=== PATIENT | female | born 1995 | race Caucasian/White ===

== ENCOUNTER → 2016-12-15 | Outpatient (CLI) | payer BC ==
[2016-12-15 16:57] LABS: FREE T4 1.15 NG/DL (0.76-1.46)
== END ==
LOC: M WUC 15:04
PROVIDERS: ATTEND Nurse Practitioner Family
DX: E03.9 Hypothyroidism, unspecified (principal)

== ENCOUNTER → 2017-08-17 | Outpatient (CLI) | payer BC | LOC: M WUC 16:13 | DX: M79.671 Pain in right foot (principal) | CPT/HCPCS: 73630 ==

== ENCOUNTER → 2017-12-09 | Outpatient (CLI) | payer BC ==
[2017-12-09 19:24] LABS: HEMATOCRIT 41.2 % (36.0-47.0); HEMOGLOBIN 13.6 g/dl (12.0-15.5); MEAN CORPUSCULAR HEMOGLOBIN 28.9 pg (27.0-33.0); MEAN CORPUSCULAR VOLUME 87.5 fl (80.0-96.0); RED BLOOD COUNT 4.71 10^6/uL (4.00-5.40); RED CELL DISTRIBUTION WIDTH 12.5 % (11.5-14.5)
[2017-12-09 19:25] LABS: BASO % 0.3 % (0.0-1.0); EOS # 0.1 10^3/uL (0.0-0.50); EOS % 0.6 % (0.0-3.0); IMMATURE GRANULOCYTE % 0.4 % (0-3.0); LYMPH # 3.2 10^3/uL (1.5-6.5); LYMPH % 26.5 % (24.0-44.0); MONO # 0.9 10^3/uL (0.0-0.8); MONO % 7.3 % (0.0-5.0); NEUTROPHILS # 7.8 10^3/uL (1.8-7.7); NEUTROPHILS % 64.9 % (36.0-66.0); PLATELET COUNT, AUTOMATED 278 10^3/uL (150-450)
[2017-12-09 19:55] LABS: IRON (FE) 38 UG/DL (50-170); PERCENT SATURATION 10.7 % (13.2-45.0); TOTAL IRON BINDING CAPACITY 354 UG/DL (250-450)
[2017-12-12 09:05] LABS: ANA (HEP2) Positive (.)
== END ==
LOC: M LAB 18:28
DX: R04.0 Epistaxis (principal)
CPT/HCPCS: 83550

== ENCOUNTER → 2017-12-09 | Outpatient (REF) | payer BC | LOC: M SFHCCLAY 15:05 | DX: R04.0 Epistaxis (principal); R23.8 Other skin changes ==

== ENCOUNTER → 2018-01-07 | Outpatient (REF) | payer BC ==
[2018-01-07 16:53] LABS: BASO % 0.2 % (0.0-1.0); EOS % 0.4 % (0.0-3.0); HEMATOCRIT 39.9 % (36.0-47.0); HEMOGLOBIN 13.5 g/dl (12.0-15.5); IMMATURE GRANULOCYTE % 0.2 % (0-3.0); LYMPH # 2.6 10^3/uL (1.5-6.5); LYMPH % 27.4 % (24.0-44.0); MEAN CORPUSCULAR HEMOGLOBIN 29.2 pg (27.0-33.0); MEAN CORPUSCULAR HGB CONC 33.8 g/dl (32.0-36.5); MEAN CORPUSCULAR VOLUME 86.2 fl (80.0-96.0); MONO # 0.6 10^3/uL (0.0-0.8); MONO % 6.5 % (0.0-5.0); NEUTROPHILS # 6.1 10^3/uL (1.8-7.7); NEUTROPHILS % 65.3 % (36.0-66.0); PLATELET COUNT, AUTOMATED 285 10^3/uL (150-450); RED BLOOD COUNT 4.63 10^6/uL (4.00-5.40); RED CELL DISTRIBUTION WIDTH 12.6 % (11.5-14.5); WHITE BLOOD COUNT 9.4 10^3/uL (4.0-10.0)
[2018-01-07 17:10] LABS: AMORPHOUS SEDIMENT SMALL (NEGATIVE); APPEARANCE, URINE HAZY (CLEAR); BACTERIA, URINE AUTO NEGATIVE (NEGATIVE); BILIRUBIN, URINE AUTO NEGATIVE (NEGATIVE); BLOOD, URINE BLOOD 1+ (NEGATIVE); COLOR, URINE YELLOW (YELLOW); GLUCOSE, URINE (UA) AUTO NEGATIVE (NEGATIVE); KETONE, URINE AUTO TRACE mg/dL (NEGATIVE); LEUKOCYTE ESTERASE, URINE AUTO TRACE (NEGATIVE); NITRITE, URINE AUTO NEGATIVE (NEGATIVE); PROTEIN, URINE AUTO NEGATIVE (NEGATIVE); RBC, URINE AUTO 12 /HPF (0-3); SQUAMOUS EPITHELIAL CELL UR AU 1 /HPF (0-6); WBC, URINE AUTO 5 /HPF (0-3)
[2018-01-07 17:27] LABS: CREATININE,RANDOM URINE 92.4 MG/DL; TOTAL PROTEIN,RANDOM URINE 14.8 MG/DL (0.0-12.0)
[2018-01-07 17:40] LABS: TOTAL 25(OH) VITAMIN D 21.8 NG/ML (30.0-100.0)
[2018-01-07 17:41] LABS: ALBUMIN 4.5 GM/DL (3.2-5.2); ALBUMIN/GLOBULIN RATIO 1.45 (1.00-1.93); ALKALINE PHOSPHATASE 44 U/L (45-117); ALT/SGPT 15 U/L (12-78); ANION GAP 9 MEQ/L (8-16); AST/SGOT 11 U/L (7-37); BILIRUBIN,TOTAL 0.4 MG/DL (0.2-1.0); BLOOD UREA NITROGEN 15 MG/DL (7-18); C REACTIVE PROTEIN QUANTITATIV 0.42 MG/DL (0.00-0.30); CALCIUM LEVEL 8.5 MG/DL (8.5-10.1); CARBON DIOXIDE LEVEL 25 MEQ/L (21-32); CHLORIDE LEVEL 107 MEQ/L (98-107); COMPLEMENT C3 128 MG/DL (90-180); COMPLEMENT C4 27.2 MG/DL (10-40); CREATININE FOR GFR 0.63 MG/DL (0.55-1.30); GLOMERULAR FILTRATION RATE > 60.0 (>60); GLUCOSE, FASTING 72 MG/DL (70-100); POTASSIUM SERUM 4.3 MEQ/L (3.5-5.1); RHEUMATOID FACTOR QUANT < 10.0 IU/ML (<15.0); SODIUM LEVEL 141 MEQ/L (136-145); THYROID STIMULATING HORMONE 0.675 uIU/ML (0.358-3.740); TOTAL PROTEIN 7.6 GM/DL (6.4-8.2)
[2018-01-07 17:45] LABS: ERYTHROCYTE SEDIMENTATION RATE 5 mm/hr (0-20)
[2018-01-11 00:07] LABS: ANTI DOUBLE STRAND-DNA AB <1 IU/mL (0-9); CYCLIC CITRULLINATED PEPTIDE 10 units (0-19); G6PD2 4.64 x10E6/uL (3.77-5.28); G6PD3 229 (146-376); RNP ANTIBODY < 0.2 AI (0.0-0.9); SMITHS ANTIBODY < 0.2 AI (0.0-0.9); SSA SJOGRENS A <0.2 AI (0.0-0.9); SSB SJOGRENS B <0.2 AI (0.0-0.9)
== END ==
LOC: M SFHCLERA 13:52
DX: R76.8 Other specified abnormal immunological findings in serum (principal)
CPT/HCPCS: 84443

== ENCOUNTER → 2018-04-18 | Outpatient (CLI) | payer BC | LOC: M RAD 15:31 | DX: M79.641 Pain in right hand (principal); M79.642 Pain in left hand | CPT/HCPCS: 73130 ==

== ENCOUNTER → 2018-09-05 | Outpatient (REF) | payer BC ==
[~2018-09-05] MED LIST: IBUP-1022 PO
== END ==
LOC: M SFHCLERA 18:03
PROVIDERS: ATTEND Nurse Practitioner Family
DX: R68.89 Other general symptoms and signs (principal)

== ENCOUNTER → 2018-10-18 | Outpatient (CLI) | payer BC ==
[2018-10-18 16:26] LABS: BASO % 0.3 % (0.0-1.0); EOS # 0.1 10^3/uL (0.0-0.50); EOS % 0.9 % (0.0-3.0); HEMATOCRIT 43.9 % (36.0-47.0); LYMPH # 2.1 10^3/uL (1.5-6.5); MEAN CORPUSCULAR HEMOGLOBIN 29.2 pg (27.0-33.0); MEAN CORPUSCULAR HGB CONC 31.9 g/dl (32.0-36.5); MEAN CORPUSCULAR VOLUME 91.5 fl (80.0-96.0); MONO # 0.6 10^3/uL (0.0-0.8); MONO % 9.1 % (0.0-5.0); NEUTROPHILS % 58.6 % (36.0-66.0); PLATELET COUNT, AUTOMATED 261 10^3/uL (150-450); WHITE BLOOD COUNT 6.8 10^3/uL (4.0-10.0)
[2018-10-18 16:33] LABS: ALBUMIN 4.1 GM/DL (3.2-5.2); ALT/SGPT 14 U/L (12-78); BILIRUBIN,TOTAL 0.3 MG/DL (0.2-1.0); BLOOD UREA NITROGEN 7 MG/DL (7-18); CALCIUM LEVEL 9.2 MG/DL (8.5-10.1); CARBON DIOXIDE LEVEL 28 MEQ/L (21-32); CHLORIDE LEVEL 106 MEQ/L (98-107); CREATININE FOR GFR 0.69 MG/DL (0.55-1.30); GLOMERULAR FILTRATION RATE > 60.0 (>60); GLUCOSE, FASTING 81 MG/DL (70-100); POTASSIUM SERUM 4.4 MEQ/L (3.5-5.1); SODIUM LEVEL 142 MEQ/L (136-145); TOTAL PROTEIN 7.3 GM/DL (6.4-8.2)
[2018-10-18 18:27] LABS: ERYTHROCYTE SEDIMENTATION RATE 9 mm/hr (0-20)
[2018-10-19 09:54] LABS: HEPATITIS B SURFACE ANTIGEN NEGATIVE (NEGATIVE)
[2018-10-19 10:20] LABS: HEPATITIS C VIRUS ABY INDEX 0.1 INDEX (<0.8)
[2018-10-19 10:21] LABS: HEPATITIS B CORE ANTIBODY IGM NEGATIVE (NEGATIVE)
[2018-10-19 10:30] LABS: HEPATITIS A ANTIBODY IGM NEGATIVE (NEGATIVE)
== END ==
LOC: M LAB 13:58
PROVIDERS: ATTEND Registered Nurse General Practice
DX: L40.50 Arthropathic psoriasis, unspecified (principal); M25.50 Pain in unspecified joint

== ENCOUNTER → 2019-01-25 | Outpatient (CLI) | payer BC ==
[2019-01-25 16:35] LABS: BASO % 0.4 % (0.0-1.0); EOS # 0.1 10^3/uL (0.0-0.50); EOS % 1.6 % (0.0-3.0); HEMATOCRIT 40.2 % (36.0-47.0); HEMOGLOBIN 12.8 g/dl (12.0-15.5); LYMPH # 2.3 10^3/uL (1.5-6.5); LYMPH % 29.4 % (24.0-44.0); MEAN CORPUSCULAR HEMOGLOBIN 29.8 pg (27.0-33.0); MEAN CORPUSCULAR HGB CONC 31.8 g/dl (32.0-36.5); MEAN CORPUSCULAR VOLUME 93.7 fl (80.0-96.0); MONO # 0.7 10^3/uL (0.0-0.8); MONO % 8.4 % (0.0-5.0); NEUTROPHILS # 4.6 10^3/uL (1.8-7.7); NEUTROPHILS % 59.8 % (36.0-66.0); PLATELET COUNT, AUTOMATED 269 10^3/uL (150-450); RED BLOOD COUNT 4.29 10^6/uL (4.00-5.40); WHITE BLOOD COUNT 7.7 10^3/uL (4.0-10.0)
[2019-01-25 17:01] LABS: ALBUMIN 3.8 GM/DL (3.2-5.2); ALT/SGPT 27 U/L (12-78); BILIRUBIN,TOTAL 0.3 MG/DL (0.2-1.0); BLOOD UREA NITROGEN 6 MG/DL (7-18); CALCIUM LEVEL 8.6 MG/DL (8.5-10.1); CARBON DIOXIDE LEVEL 28 MEQ/L (21-32); CHLORIDE LEVEL 105 MEQ/L (98-107); CREATININE FOR GFR 0.71 MG/DL (0.55-1.30); GLOMERULAR FILTRATION RATE > 60.0 (>60); GLUCOSE, FASTING 87 MG/DL (70-100); POTASSIUM SERUM 4.1 MEQ/L (3.5-5.1); RHEUMATOID FACTOR QUANT < 10.0 IU/ML (<15.0); SODIUM LEVEL 139 MEQ/L (136-145); TOTAL PROTEIN 6.9 GM/DL (6.4-8.2)
[2019-01-25 18:08] LABS: ERYTHROCYTE SEDIMENTATION RATE 8 mm/hr (0-20)
== END ==
LOC: M WUC 14:51
PROVIDERS: ATTEND Registered Nurse General Practice
DX: L40.9 Psoriasis, unspecified (principal)

== ENCOUNTER → 2019-05-02 | Outpatient (REF) | payer BC | LOC: M SFHCCLAY 12:00 | PROVIDERS: ATTEND Nurse Practitioner Family | DX: J02.9 Acute pharyngitis, unspecified (principal) ==

== ENCOUNTER → 2019-08-02 | Outpatient (CLI) | payer BC ==
[2019-08-02 20:27] LABS: BASO % 0.3 % (0.0-1.0); EOS % 0.4 % (0.0-3.0); HEMATOCRIT 42.3 % (36.0-47.0); HEMOGLOBIN 13.7 g/dl (12.0-15.5); LYMPH # 3.5 10^3/uL (1.5-5.0); LYMPH % 34.7 % (24.0-44.0); MEAN CORPUSCULAR HEMOGLOBIN 29.1 pg (27.0-33.0); MEAN CORPUSCULAR HGB CONC 32.4 g/dl (32.0-36.5); MEAN CORPUSCULAR VOLUME 89.8 fl (80.0-96.0); MONO # 0.8 10^3/uL (0.0-0.8); MONO % 7.8 % (0.0-5.0); NEUTROPHILS # 5.7 10^3/uL (1.5-8.5); NEUTROPHILS % 56.5 % (36.0-66.0); PLATELET COUNT, AUTOMATED 310 10^3/uL (150-450); RED BLOOD COUNT 4.71 10^6/uL (4.00-5.40); WHITE BLOOD COUNT 10.1 10^3/uL (4.0-10.0)
[2019-08-02 20:37] LABS: ALBUMIN 4.3 GM/DL (3.2-5.2); ALT/SGPT 23 U/L (12-78); BILIRUBIN,TOTAL 0.3 MG/DL (0.2-1.0); BLOOD UREA NITROGEN 6 MG/DL (7-18); CARBON DIOXIDE LEVEL 26 MEQ/L (21-32); CHLORIDE LEVEL 106 MEQ/L (98-107); CREATININE FOR GFR 0.63 MG/DL (0.55-1.30); GLOMERULAR FILTRATION RATE > 60.0 (>60); GLUCOSE, FASTING 78 MG/DL (70-100); POTASSIUM SERUM 4.2 MEQ/L (3.5-5.1); SODIUM LEVEL 141 MEQ/L (136-145); TOTAL PROTEIN 7.7 GM/DL (6.4-8.2)
== END ==
LOC: M WUC 17:14
PROVIDERS: ATTEND Registered Nurse General Practice
DX: L40.9 Psoriasis, unspecified (principal); Z71.9 Counseling, unspecified

== ENCOUNTER → 2019-08-15 | Outpatient (REF) | payer BC ==
[2019-08-17 14:07] LABS: Lyme Disease IgG/IgM Antibodie <0.91 ISR (0.00-0.90); Lyme Disease IgM Ab Quantitati <0.80 index (0.00-0.79)
== END ==
LOC: M SFHCCLAY 10:01
PROVIDERS: ATTEND Nurse Practitioner Family
DX: M25.50 Pain in unspecified joint (principal)

== ENCOUNTER → 2019-09-19 | Outpatient (REF) | payer BC | LOC: M SFHCCLAY 11:38 | PROVIDERS: ATTEND Nurse Practitioner Family | DX: Z01.419 Encounter for gynecological examination (general) (routine) without abnormal findings (principal) | CPT/HCPCS: 87624; G0123 ==

== ENCOUNTER → 2020-04-03 | Outpatient (CLI) | payer BC ==
[2020-04-03 17:11] LABS: BASO % 0.4 % (0.0-1.0); EOS # 0.1 10^3/uL (0.0-0.5); EOS % 0.7 % (0.0-3.0); HEMATOCRIT 43.9 % (36.0-47.0); HEMOGLOBIN 13.8 g/dl (12.0-15.5); LYMPH # 2.7 10^3/uL (1.5-5.0); LYMPH % 36.5 % (24.0-44.0); MEAN CORPUSCULAR HEMOGLOBIN 28.6 pg (27.0-33.0); MEAN CORPUSCULAR HGB CONC 31.4 g/dl (32.0-36.5); MEAN CORPUSCULAR VOLUME 90.9 fl (80.0-96.0); MONO # 0.6 10^3/uL (0.0-0.8); MONO % 7.7 % (0.0-5.0); NEUTROPHILS % 54.4 % (36.0-66.0); PLATELET COUNT, AUTOMATED 301 10^3/uL (150-450); RED BLOOD COUNT 4.83 10^6/uL (4.00-5.40); WHITE BLOOD COUNT 7.4 10^3/uL (4.0-10.0)
[2020-04-03 17:37] LABS: ERYTHROCYTE SEDIMENTATION RATE 8 mm/hr (0-20)
[2020-04-03 20:08] LABS: ALBUMIN 4.1 GM/DL (3.2-5.2); ALT/SGPT 15 U/L (12-78); BILIRUBIN,TOTAL 0.5 MG/DL (0.2-1.0); BLOOD UREA NITROGEN 7 MG/DL (7-18); CALCIUM LEVEL 9.2 MG/DL (8.5-10.1); CARBON DIOXIDE LEVEL 25 MEQ/L (21-32); CHLORIDE LEVEL 108 MEQ/L (98-107); CREATININE FOR GFR 0.72 MG/DL (0.55-1.30); FREE T4 1.19 NG/DL (0.76-1.46); GLOMERULAR FILTRATION RATE > 60.0 (>60); GLUCOSE, FASTING 77 MG/DL (70-100); POTASSIUM SERUM 4.5 MEQ/L (3.5-5.1); RHEUMATOID FACTOR QUANT < 10.0 IU/ML (<15.0); SODIUM LEVEL 139 MEQ/L (136-145); THYROID STIMULATING HORMONE 0.386 uIU/ML (0.358-3.740); TOTAL PROTEIN 7.5 GM/DL (6.4-8.2)
== END ==
LOC: M WUC 10:36
PROVIDERS: ATTEND Specialist
DX: L40.0 Psoriasis vulgaris (principal); L40.50 Arthropathic psoriasis, unspecified; Z79.899 Other long term (current) drug therapy

== ENCOUNTER → 2020-05-27 | Outpatient (REF) | payer BC ==
[2020-05-27 17:48] LABS: APPEARANCE, URINE HAZY (CLEAR); BACTERIA, URINE AUTO NEGATIVE (NEGATIVE); BILIRUBIN, URINE AUTO NEGATIVE (NEGATIVE); BLOOD, URINE BLOOD 2+ (NEGATIVE); COLOR, URINE YELLOW (YELLOW); GLUCOSE, URINE (UA) AUTO NEGATIVE (NEGATIVE); KETONE, URINE AUTO NEGATIVE (NEGATIVE); LEUKOCYTE ESTERASE, URINE AUTO TRACE (NEGATIVE); MUCUS, URINE SMALL (NEGATIVE); NITRITE, URINE AUTO NEGATIVE (NEGATIVE); PROTEIN, URINE AUTO NEGATIVE (NEGATIVE); RBC, URINE AUTO 10 /HPF (0-3); SPECIFIC GRAVITY URINE AUTO 1.029 (1.002-1.035); SQUAMOUS EPITHELIAL CELL UR AU 3 /HPF (0-6); UROBILINOGEN, URINE AUTO 0.2 mg/dL (0.0-2.0); WBC, URINE AUTO 6 /HPF (0-3)
== END ==
LOC: M SFHCRHEU 15:11
PROVIDERS: ATTEND Internal Medicine
DX: R76.8 Other specified abnormal immunological findings in serum (principal); M25.40 Effusion, unspecified joint; M79.10 Myalgia, unspecified site; M54.9 Dorsalgia, unspecified

== ENCOUNTER → 2020-05-28 | Outpatient (CLI) | payer BC ==
--- NOTE | 2020-05-28 11:02 | REP ---
INDICATION: JOINT EFFUSION OR MULTIPLE SITES, TROCHANTERIC BURSITIS COMPARISON: None. TECHNIQUE: AP, lateral, bilateral oblique views right and left hand. FINDINGS: The osseous structures and joint spaces are intact and normal. There is no evidence for osteoarthritic or inflammatory arthritic changes and no obvious congenital abnormalities. No evidence for acute or healed injury. Surrounding soft tissues are normal. IMPRESSION: Symmetric normal bilateral hand radiograph series. <Electronically signed by Zack Zamora > 05/28/20 [id number]
--- NOTE | 2020-05-28 11:03 | REP ---
INDICATION: JOINT EFFUSION OR MULTIPLE SITES, TROCHANTERIC BURSITIS COMPARISON: None. TECHNIQUE: AP, lateral, bilateral oblique views right and left wrist. FINDINGS: The carpal bones, surrounding osseous structures, soft tissues, and joint spaces are symmetric and normal. No evidence for acute or healed injury. There is no evidence for osteoarthritic or inflammatory arthritic changes and no obvious congenital abnormalities. IMPRESSION: Normal symmetric bilateral wrist series. <Electronically signed by Zack Zamora > 05/28/20 1100
--- NOTE | 2020-05-28 11:06 | REP ---
INDICATION: JOINT EFFUSION OR MULTIPLE SITES, TROCHANTERIC BURSITIS COMPARISON: None. TECHNIQUE: AP, lateral, bilateral oblique views of the right and left ankle. FINDINGS: Osseous structures, joint spaces, and surrounding soft tissues are symmetric and normal. No evidence for acute or healed injury. No obvious arthritic or congenital abnormalities are identified. IMPRESSION: Normal bilateral symmetric ankle radiograph series <Electronically signed by Zack Zamora > 05/28/20 110
--- NOTE | 2020-05-28 11:07 | REP ---
INDICATION: JOINT EFFUSION OR MULTIPLE SITES, TROCHANTERIC BURSITIS. COMPARISON: None. TECHNIQUE: Frontal view of the pelvis with neutral and frog-lateral views of the bilateral hips. FINDINGS: Right hip demonstrates very subtle increased sclerosis and cortical irregularity along the acetabular roof. Left hip appears normal. Remainder of the osseous structures and surrounding soft tissues are normal. IMPRESSION: Very subtle irregularity to the right hip joint as described above should be correlated with physical examination. <Electronically signed by Zack Zamora > 05/28/20 1101
[2020-05-28 16:21] LABS: BASO % 0.3 % (0.0-1.0); EOS # 0.1 10^3/uL (0.0-0.5); EOS % 0.7 % (0.0-3.0); HEMATOCRIT 42.3 % (36.0-47.0); HEMOGLOBIN 13.4 g/dl (12.0-15.5); LYMPH # 2.4 10^3/uL (1.5-5.0); LYMPH % 35.6 % (24.0-44.0); MEAN CORPUSCULAR HEMOGLOBIN 28.7 pg (27.0-33.0); MEAN CORPUSCULAR HGB CONC 31.7 g/dl (32.0-36.5); MEAN CORPUSCULAR VOLUME 90.6 fl (80.0-96.0); MONO # 0.5 10^3/uL (0.0-0.8); MONO % 7.7 % (0.0-5.0); NEUTROPHILS # 3.8 10^3/uL (1.5-8.5); NEUTROPHILS % 55.6 % (36.0-66.0); PLATELET COUNT, AUTOMATED 277 10^3/uL (150-450); RED BLOOD COUNT 4.67 10^6/uL (4.00-5.40); WHITE BLOOD COUNT 6.9 10^3/uL (4.0-10.0)
[2020-05-28 16:23] LABS: C REACTIVE PROTEIN QUANTITATIV < 0.30 MG/DL (0.00-0.30); COMPLEMENT C3 115 MG/DL (90-180); COMPLEMENT C4 28 MG/DL (10-40); CPK CREATINE PHOSPHOKINASE 104 U/L (26-192); IRON (FE) 52 UG/DL (50-170); MAGNESIUM LEVEL 1.9 MG/DL (1.8-2.4); PHOSPHORUS LEVEL 2.8 MG/DL (2.5-4.9); RHEUMATOID FACTOR QUANT < 10.0 IU/ML (<15.0)
[2020-05-28 16:31] LABS: TOTAL 25(OH) VITAMIN D 25.7 NG/ML (30.0-100.0); VITAMIN B12 LEVEL 459 PG/ML (247-911)
[2020-05-28 17:12] LABS: ERYTHROCYTE SEDIMENTATION RATE 11 mm/hr (0-20)
== END ==
LOC: M WUC 10:19
PROVIDERS: ATTEND Internal Medicine
DX: R76.8 Other specified abnormal immunological findings in serum (principal); M79.10 Myalgia, unspecified site; M25.40 Effusion, unspecified joint; M54.9 Dorsalgia, unspecified

== ENCOUNTER → 2020-07-18 | Outpatient (CLI) | payer BC | LOC: M SLEEP HO 10:08 | PROVIDERS: ATTEND Internal Medicine | DX: R53.83 Other fatigue (principal) ==

== ENCOUNTER → 2020-07-23 | Outpatient (CLI) | payer BC ==
--- NOTE | 2020-07-23 15:51 | SLEEPHOME ---
DATE: 07/23/2020 ORDERED BY: Dr. Marli Dill Diagnostic home sleep testing was performed due to concern for the obstructive sleep apnea syndrome in this patient with a history of fatigue. For testing, a nocturnal T3 respiratory monitoring device was used. Continuous record was made of pulse, oxygen saturation, air flow, chest and abdominal strain, and body position. There was 9 hours and 59 minutes of data reviewed. There was 8 hours and 49 minutes marked as time in bed. During the interval marked time in bed, there were 29 respiratory events identified of 10 seconds in duration or greater for a respiratory event index of 3.3. The events seen were primarily obstructive and more frequently hypopneic. Baseline pulse rate was 60 beats per minute. Pulse rate ranged 48-113. Baseline saturation 96%. Saturations were seen to fall to 87%, and testing was performed in both the supine and nonsupine positions. Respiratory events were significantly more frequent in the supine posture. IMPRESSION: Borderline diagnostic home sleep test with repetitive respiratory events, desaturations to 87%, and a respiratory event index of 3.3. RECOMMENDATION: The frequency of events did not meet the threshold usually applied to patients with obstructive sleep apnea. Nonetheless, given the patient's symptom complex, sleep position retraining for avoidance of the supine posture would be prudent. If sleep symptoms persist, referral for formal evaluation and consideration of in-laboratory nocturnal polysomnography may be more specific for identifying mild disease.
--- NOTE | 2020-07-24 08:26 | REP ---
INDICATION: SEVERE HIP PAIN W/ ABNORMAL XRAY. COMPARISON: Comparison radiographs 05/28/2020.. TECHNIQUE: Coronal T1 and fat sat T2 images of both hips are acquired. Smaller [id number] T2 fat sat images are acquired of the right hip in all 3 planes. FINDINGS: Cortical and medullary bone signal intensity are normal in the proximal femurs bilaterally. There is no evidence of avascular necrosis. No uterine or ovarian abnormality is seen. No abdominal wall defect is seen. There is no evidence of significant hip joint effusion on either side. There are mild T2 hyperintense changes in the soft tissues adjacent to the greater trochanter which may reflect tendinitis. No bursal fluid collection is seen. Ligamentum teres appears intact. Acetabular labral cartilage is appear symmetric and intact. No MR evidence of arthropathy is seen. SI joints are unremarkable bilaterally. Head neck junction morphology is normal. There is no evidence of inguinal or pelvic lymphadenopathy. Skeletal muscle signal intensity is normal on T1 and T2 weighted scans. Hamstring tendon insertions are unremarkable and symmetric. No vascular abnormality is seen. IMPRESSION: There is a subtle T2 hyperintensity adjacent to the greater trochanter on the right which may reflect mild tendinitis. Otherwise normal MRI study of the right hip. <Electronically signed by Chris Cabrera > 07/24/20 1832
== END ==
LOC: M RAD 16:31
PROVIDERS: ATTEND Internal Medicine
DX: M24.851 Other specific joint derangements of right hip, not elsewhere classified (principal)

== ENCOUNTER → 2020-08-02 | Outpatient (CLI) | payer BC ==
--- NOTE | 2020-08-02 09:18 | REP ---
INDICATION: DORSALGIA, UNSPECIFIED COMPARISON: None. TECHNIQUE: AP, lateral, flexion/extension, bilateral oblique, and coned-down views. FINDINGS: Alignment and lordosis is maintained. The vertebral bodies including transverse process and spinous processes are intact and normal. There is no evidence for acute fracture / compression injury or subluxation. No evidence for spondylolysis or spondylolisthesis. No significant degenerative change is noted. IMPRESSION: Normal lumbosacral spine radiograph series. <Electronically signed by Zack Zamora > 08/02/20 0969
== END ==
LOC: M RAD 08:27
PROVIDERS: ATTEND Internal Medicine
DX: M54.9 Dorsalgia, unspecified (principal)

== ENCOUNTER → 2020-09-03 | Outpatient (CLI) | payer BC ==
[2020-09-05 16:11] LABS: CARDIOLIPIN IGA ANTIBODY <9 APL U/mL (0-11); CARDIOLIPIN IGG ANTIBODY <9 GPL U/mL (0-14); CARDIOLIPIN IGM ANTIBODY 11 MPL U/mL (0-12)
== END ==
LOC: M WUC 15:19
PROVIDERS: ATTEND Internal Medicine
DX: R76.8 Other specified abnormal immunological findings in serum (principal); E55.9 Vitamin D deficiency, unspecified

== ENCOUNTER → 2021-02-06 | Outpatient (REF) | payer BC | LOC: M SFHCCLAY 15:40 | PROVIDERS: ATTEND Nurse Practitioner Family | DX: R82.90 Unspecified abnormal findings in urine (principal) ==

== ENCOUNTER → 2021-02-24 | Outpatient (CLI) | payer BC ==
[~2021-02-24] MED LIST changes: +PROHANCE 279.3MG/ML 15ML VIAL As Ordered ONE; +PROHANCE 279.3MG/ML 5ML VIAL As Ordered ONE
--- NOTE | 2021-02-24 12:16 | REPVR ---
PROCEDURE INFORMATION: Exam: MR Head Without and With Contrast Exam date and time: 02/24/2021 11:11 AM Age: 25 years old Clinical indication: Other: Extradural and subdural abscess, unspecified TECHNIQUE: Imaging protocol: MR of the head without and with intravenous contrast. Contrast material: PROHANCE; Contrast volume: 16 ml; Contrast route: INTRAVENOUS (IV); COMPARISON: No relevant prior studies available. FINDINGS: Brain: Small frontal extra-axial collection measuring 28 x 11.4 mm with adjacent dural thickening and postcontrast enhancement. There is small area of restricted diffusion in the right frontal lobe likely extra-axial within the periphery measuring about 2 x 12 mm with post-contrast dural enhancement/thickening. 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 Cerebral ventricles: Normal. No ventriculomegaly. Bones/joints: Right frontal zain hole with postsurgical changes and postcontrast enhancement. Paranasal sinuses: Complete opacification of the right maxillary sinus. Moderate mucosal thickening of the right ethmoidal air cells and near complete opacification of the right frontal sinus. Mastoid air cells: Normal as visualized. No mastoid effusion. Orbital cavity: Unremarkable. Soft tissues: Unremarkable. IMPRESSION: Small frontal extra-axial collection measuring 28 x 11.4 mm with adjacent dural thickening and postcontrast enhancement. There is small area of restricted diffusion in the right frontal lobe likely extra-axial within the periphery measuring about 2 x 12 mm with post-contrast dural enhancement/thickening. 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 Extensive right-sided sinus disease. Electronically signed by: Carmelita Wu On 02/24/2021 12:16:36 PM
== END ==
LOC: M RAD 09:29
PROVIDERS: ATTEND Internal Medicine Infectious Disease
DX: G06.2 Extradural and subdural abscess, unspecified (principal); A49.9 Bacterial infection, unspecified; Z79.2 Long term (current) use of antibiotics
CPT/HCPCS: 70553; A9576

== ENCOUNTER → 2021-03-25 | Outpatient (CLI) | payer BC ==
[~2021-03-25] MED LIST changes: -PROHANCE 279.3MG/ML 15ML VIAL As Ordered ONE; -PROHANCE 279.3MG/ML 5ML VIAL As Ordered ONE
[2021-03-25 11:38] LABS: BASO % 0.5 % (0.0-1.0); EOS # 0.1 10^3/uL (0.0-0.5); EOS % 1.6 % (0.0-3.0); HEMATOCRIT 38.6 % (36.0-47.0); HEMOGLOBIN 12.4 g/dl (12.0-15.5); LYMPH # 2.8 10^3/uL (1.5-5.0); LYMPH % 33.4 % (24.0-44.0); MEAN CORPUSCULAR HEMOGLOBIN 28.5 pg (27.0-33.0); MEAN CORPUSCULAR HGB CONC 32.1 g/dl (32.0-36.5); MEAN CORPUSCULAR VOLUME 88.7 fl (80.0-96.0); MONO # 0.7 10^3/uL (0.0-0.8); MONO % 8.1 % (2.0-8.0); NEUTROPHILS # 4.7 10^3/uL (1.5-8.5); NEUTROPHILS % 56.3 % (36.0-66.0); PLATELET COUNT, AUTOMATED 322 10^3/uL (150-450); RED BLOOD COUNT 4.35 10^6/uL (4.00-5.40); WHITE BLOOD COUNT 8.3 10^3/uL (4.0-10.0)
[2021-03-25 12:25] LABS: ERYTHROCYTE SEDIMENTATION RATE 15 mm/hr (0-20)
[2021-03-25 13:20] LABS: ALBUMIN 3.5 GM/DL (3.2-5.2); ALT/SGPT 47 U/L (12-78); BILIRUBIN,TOTAL 0.2 MG/DL (0.2-1.0); BLOOD UREA NITROGEN 8 MG/DL (7-18); C REACTIVE PROTEIN QUANTITATIV 0.67 MG/DL (0.00-0.30); CALCIUM LEVEL 8.9 MG/DL (8.5-10.1); CARBON DIOXIDE LEVEL 24 MEQ/L (21-32); CHLORIDE LEVEL 108 MEQ/L (98-107); CREATININE FOR GFR 0.67 MG/DL (0.55-1.30); GLOMERULAR FILTRATION RATE > 60.0 (>60); GLUCOSE, FASTING 93 MG/DL (70-100); POTASSIUM SERUM 4.3 MEQ/L (3.5-5.1); SODIUM LEVEL 139 MEQ/L (136-145)
== END ==
LOC: M WUC 09:57
PROVIDERS: ATTEND Internal Medicine Infectious Disease
DX: G06.2 Extradural and subdural abscess, unspecified (principal); A49.9 Bacterial infection, unspecified; Z79.2 Long term (current) use of antibiotics

== ENCOUNTER → 2021-03-26 | Outpatient (CLI) | payer BC ==
[~2021-03-26] MED LIST changes: +PROHANCE 279.3MG/ML 15ML VIAL ONE; +PROHANCE 279.3MG/ML 5ML VIAL ONE
--- NOTE | 2021-03-26 13:31 | REPVR ---
PROCEDURE INFORMATION: Exam: MR Head Without and With Contrast Exam date and time: 03/26/2021 9:53 AM Age: 25 years old Clinical indication: Condition or disease; Other: Epidural abscess; Prior surgery; Surgery date: 1-6 months; Surgery type: Abscess drainage TECHNIQUE: Imaging protocol: MR of the head without and with intravenous contrast. Contrast material: PROHANCE; Contrast volume: 16 ml; Contrast route: INTRAVENOUS (IV); COMPARISON: MRI-Brain W/O FOLL BY WITH 02/24/2021 10:03 AM FINDINGS: Brain: In region of the previously seen small extra-axial right paramedian frontal fluid collection, there is very minimal residual fluid seen on T2 axial image 14 measuring 12 mm transverse dimension by 1.2 mm anterior-posterior dimension and previously the fluid measured 13 mm transverse dimension and 4 mm anterior-posterior dimension. This is located just above superior margin of right frontal sinus. There is decreasing thickness of adjacent dural enhancement which extends superiorly and laterally. There are no new extra-axial fluid collections. There is no abnormal signal within the adjacent brain parenchyma. There is no evidence of restricted diffusion in the brain parenchyma. Cerebral ventricles: Normal. No ventriculomegaly. Bones/joints: There is postoperative changes right frontal zain hole. Paranasal sinuses: Again seen is opacification in the right ostiomeatal complex distribution involving right frontal and maxillary sinuses and right anterior ethmoid air cells.. Mastoid air cells: No significant mastoid effusion. Orbital cavity: Unremarkable. Soft tissues: Unremarkable as visualized. IMPRESSION: Continued decrease and very minimal residual right frontal extra-axial fluid and decreasing surrounding and adjacent dural enhancement. Electronically signed by: Deidre Saldaña On 03/26/2021 13:31:12 PM
== END ==
LOC: M PLAIMG 08:05
PROVIDERS: ATTEND Physician Assistant
DX: G06.2 Extradural and subdural abscess, unspecified (principal); A49.9 Bacterial infection, unspecified; Z79.2 Long term (current) use of antibiotics
CPT/HCPCS: 70553; A9576

== ENCOUNTER → 2021-04-23 | Outpatient (CLI) | payer BC ==
[~2021-04-23] MED LIST changes: -PROHANCE 279.3MG/ML 15ML VIAL ONE; -PROHANCE 279.3MG/ML 5ML VIAL ONE
== END ==
LOC: M WUC 13:35
PROVIDERS: ATTEND Internal Medicine
DX: E55.9 Vitamin D deficiency, unspecified (principal)

== ENCOUNTER → 2021-09-12 | Outpatient (CLI) | payer BC ==
[2021-09-12 16:06] LABS: BASO % 0.2 % (0.0-1.0); EOS # 0.1 10^3/uL (0.0-0.5); EOS % 0.7 % (0.0-3.0); HEMATOCRIT 41.7 % (36.0-47.0); HEMOGLOBIN 12.9 g/dl (12.0-15.5); LYMPH # 2.8 10^3/uL (1.5-5.0); LYMPH % 29.1 % (24.0-44.0); MEAN CORPUSCULAR HEMOGLOBIN 26.4 pg (27.0-33.0); MEAN CORPUSCULAR HGB CONC 30.9 g/dl (32.0-36.5); MEAN CORPUSCULAR VOLUME 85.3 fl (80.0-96.0); MONO # 0.6 10^3/uL (0.0-0.8); MONO % 6.7 % (2.0-8.0); NEUTROPHILS % 62.9 % (36.0-66.0); PLATELET COUNT, AUTOMATED 359 10^3/uL (150-450); RED BLOOD COUNT 4.89 10^6/uL (4.00-5.40); WHITE BLOOD COUNT 9.6 10^3/uL (4.0-10.0)
[2021-09-12 16:29] LABS: ALBUMIN 3.8 GM/DL (3.2-5.2); ALT/SGPT 22 U/L (12-78); BILIRUBIN,TOTAL 0.3 MG/DL (0.2-1.0); BLOOD UREA NITROGEN 9 MG/DL (7-18); CALCIUM LEVEL 9.5 MG/DL (8.5-10.1); CARBON DIOXIDE LEVEL 25 MEQ/L (21-32); CHLORIDE LEVEL 108 MEQ/L (98-107); CREATININE FOR GFR 0.74 MG/DL (0.55-1.30); GLOMERULAR FILTRATION RATE > 60.0 (>60); GLUCOSE, FASTING 79 MG/DL (70-100); POTASSIUM SERUM 4.2 MEQ/L (3.5-5.1); SODIUM LEVEL 140 MEQ/L (136-145); TOTAL PROTEIN 7.4 GM/DL (6.4-8.2)
== END ==
LOC: M WUC 11:16
PROVIDERS: ATTEND Specialist
DX: L40.0 Psoriasis vulgaris (principal); L40.50 Arthropathic psoriasis, unspecified; Z76.89 Persons encountering health services in other specified circumstances

== ENCOUNTER → 2021-12-24 | Outpatient (CLI) | payer BC ==
[~2021-12-24] MED LIST changes: +DEPO150I12 IM; +ONDA4TAB6 PO; +RISA150S2 SQ; +RIZA10TA64 PO; +VENTAER INH; +medical marijuana
== END ==
LOC: M WUC 15:12
PROVIDERS: ATTEND Internal Medicine
DX: M25.40 Effusion, unspecified joint (principal)

== ENCOUNTER 2022-02-11 06:44 | Emergency (ER) | payer BC ==
[~2022-02-11] VITALS: Ht 152.4 cm; Wt 92.4 kg
[~2022-02-11 06:44] MED LIST changes: -DEPO150I12 IM; -ONDA4TAB6 PO; -RISA150S2 SQ; -RIZA10TA64 PO; -VENTAER INH; -medical marijuana
[2022-02-11] MEDS ORDERED: RIZA10TA64 PO (06:56)
[2022-02-11] MEDS ORDERED: medical marijuana (06:56)
[2022-02-11] MEDS ORDERED: ONDA4TAB6 PO (06:56)
[2022-02-11] MEDS ORDERED: DEPO150I12 IM (06:56)
[2022-02-11] MEDS ORDERED: VENTAER INH (06:56)
[2022-02-11] MEDS ORDERED: RISA150S2 SQ (06:56)
[2022-02-11] MEDS ORDERED: diphenhydrAMINE 50MG/ML VIAL (J1200) IV STA (07:29)
[2022-02-11] MEDS ORDERED: METOCLOPRAMIDE INJ 10MG/2ML VIAL (J2765 PER 1) IV ONE (07:30)
[2022-02-11] MEDS ORDERED: NS 1,000 ML IV ONE (07:30)
[2022-02-11] MEDS ORDERED: KETOROLAC 30 MG/ML 1ML VIAL IV ONE (07:30)
[2022-02-11] MEDS ORDERED: ONDANSETRON 4MG 2ML VIAL IV ONE (07:30)
[2022-02-11 08:52] LABS: ALBUMIN 3.5 GM/DL (3.2-5.2); ALT/SGPT 15 U/L (12-78); BILIRUBIN,TOTAL 0.3 MG/DL (0.2-1.0); BLOOD UREA NITROGEN 7 MG/DL (7-18); C REACTIVE PROTEIN QUANTITATIV 1.54 MG/DL (0.00-0.30); CALCIUM LEVEL 9.1 MG/DL (8.5-10.1); CARBON DIOXIDE LEVEL 26 MEQ/L (21-32); CHLORIDE LEVEL 106 MEQ/L (98-107); CREATININE FOR GFR 0.72 MG/DL (0.55-1.30); GLOMERULAR FILTRATION RATE > 60.0 (>60); GLUCOSE, FASTING 100 MG/DL (70-100); MAGNESIUM LEVEL 2.1 MG/DL (1.8-2.4); POTASSIUM SERUM 4.3 MEQ/L (3.5-5.1); SODIUM LEVEL 137 MEQ/L (136-145); TOTAL PROTEIN 7.3 GM/DL (6.4-8.2)
[2022-02-11 08:55] LABS: HEMATOCRIT 40.4 % (36.0-47.0); HEMOGLOBIN 12.7 g/dl (12.0-15.5); MEAN CORPUSCULAR HEMOGLOBIN 25.3 pg (27.0-33.0); MEAN CORPUSCULAR HGB CONC 31.4 g/dl (32.0-36.5); MEAN CORPUSCULAR VOLUME 80.6 fl (80.0-96.0); PLATELET COUNT, AUTOMATED 382 10^3/uL (150-450); RED BLOOD COUNT 5.01 10^6/uL (4.00-5.40); WHITE BLOOD COUNT 10.7 10^3/uL (4.0-10.0)
[2022-02-11] MEDS ORDERED: ISOVUE-370 76% 100ML VIAL As Ordered ONE (09:06)
[2022-02-11 09:23] LABS: ERYTHROCYTE SEDIMENTATION RATE 27 mm/hr (0-20)
[2022-02-11 10:45] VITALS: BP 200/120
== END 2022-02-11 10:44 | disposition home or self-care (01) ==
LOC: M ED 06:44
DX: G43.909 Migraine, unspecified, not intractable, without status migrainosus (principal); J45.909 Unspecified asthma, uncomplicated; Z88.0 Allergy status to penicillin; Z88.6 Allergy status to analgesic agent; Z91.02 Food additives allergy status; Z79.51 Long term (current) use of inhaled steroids; Z79.899 Other long term (current) drug therapy
CPT/HCPCS: 70470; 80053; 83735; 84702; 85027; 85652; 86140; 96361; 96374; 96375; 99284; J1200; J1885; J2405; J2765; Q9967

== ENCOUNTER → 2022-02-11 | Outpatient (REF) | payer BC | LOC: M SFHCCLAY 11:20 | PROVIDERS: ATTEND Physician Assistant | DX: R19.7 Diarrhea, unspecified (principal) ==

== ENCOUNTER → 2022-03-24 | Outpatient (CLI) | payer BC ==
[~2022-03-24] MED LIST changes: +DEPO150I12 IM; +ONDA4TAB6 PO; +RISA150S2 SQ; +RIZA10TA64 PO; +VENTAER INH; +medical marijuana
== END ==
LOC: M WUC 15:11
PROVIDERS: ATTEND Internal Medicine
DX: M25.40 Effusion, unspecified joint (principal)

== ENCOUNTER → 2022-03-26 | Outpatient (CLI) | payer BC ==
[~2022-03-26] MED LIST changes: +GASTROGRAFIN SOLUTION 30ML (Q9963) As Ordered ONE; +ISOVUE-370 76% 100ML VIAL As Ordered ONE
== END ==
LOC: M RAD 12:13
PROVIDERS: ATTEND Nurse Practitioner Family
DX: R19.7 Diarrhea, unspecified (principal)
CPT/HCPCS: 74177; Q9963; Q9967

== ENCOUNTER 2022-05-04 12:37 | Emergency (ER) | payer BC ==
[~2022-05-04] VITALS: Ht 152.4 cm; Wt 92.3 kg
[~2022-05-04 12:37] MED LIST changes: -GASTROGRAFIN SOLUTION 30ML (Q9963) As Ordered ONE; -ISOVUE-370 76% 100ML VIAL As Ordered ONE
[2022-05-04] MEDS ORDERED: NS 1,000 ML IV SCH (13:40)
[2022-05-04 14:09] LABS: BASO # 0.1 10^3/uL (0.0-0.2); BASO % 0.5 % (0.0-1.0); EOS % 0.4 % (0.0-3.0); HEMATOCRIT 41.2 % (36.0-47.0); HEMOGLOBIN 12.6 g/dl (12.0-15.5); LYMPH # 2.2 10^3/uL (1.5-5.0); LYMPH % 20.5 % (24.0-44.0); MEAN CORPUSCULAR HEMOGLOBIN 25.1 pg (27.0-33.0); MEAN CORPUSCULAR HGB CONC 30.6 g/dl (32.0-36.5); MEAN CORPUSCULAR VOLUME 82.1 fl (80.0-96.0); MONO # 0.7 10^3/uL (0.0-0.8); MONO % 6.3 % (2.0-8.0); NEUTROPHILS # 7.7 10^3/uL (1.5-8.5); NEUTROPHILS % 71.6 % (36.0-66.0); PLATELET COUNT, AUTOMATED 372 10^3/uL (150-450); RED BLOOD COUNT 5.02 10^6/uL (4.00-5.40); WHITE BLOOD COUNT 10.7 10^3/uL (4.0-10.0)
[2022-05-04 14:12] LABS: HCG, SERUM QUALITATIVE NEGATIVE (NEGATIVE)
[2022-05-04 14:20] LABS: ETHYL ALCOHOL (ETHANOL) 0.003 % (0.000-0.010)
[2022-05-04 14:21] LABS: ACETAMINOPHEN LEVEL < 2.0 UG/ML (10.0-20.0); CPK CREATINE PHOSPHOKINASE 231 U/L (34-145)
[2022-05-04 14:22] LABS: ALBUMIN 3.8 G/DL (3.2-5.2); ALKALINE PHOSPHATASE 66 U/L (46-116); ALT/SGPT 15 U/L (7.0-40); AST/SGOT 15 U/L (<34); BILIRUBIN,DIRECT 0.1 MG/DL (<0.4); BILIRUBIN,TOTAL 0.3 MG/DL (0.3-1.2); BLOOD UREA NITROGEN 7 MG/DL (9-23); CALCIUM LEVEL 8.8 MG/DL (8.5-10.1); CARBON DIOXIDE LEVEL 25 MMOL/L (20-31); CHLORIDE LEVEL 103 MMOL/L (98-107); CK-MB VALUE MASS < 1.0 NG/ML (<3.6); CREATININE FOR GFR 0.69 MG/DL (0.55-1.30); GLOMERULAR FILTRATION RATE > 60.0 (>60); GLUCOSE, FASTING 83 MG/DL (60-100); MB/CK RELATIVE INDEX 0.43 (< OR =4); POTASSIUM SERUM 4.3 MMOL/L (3.5-5.1); SALICYLATE LEVEL < 3.0 MG/DL (<30); SODIUM LEVEL 138 MMOL/L (136-145); TOTAL PROTEIN 7.1 G/DL (5.7-8.2)
[2022-05-04 14:24] LABS: THYROID STIMULATING HORMONE 0.941 uIU/ML (0.55-4.78)
[2022-05-04] MEDS ORDERED: ONDANSETRON 4MG 2ML VIAL IV ONE (14:40)
[2022-05-04] MEDS ORDERED: ACETAMINOPHEN 325 MG TAB PO ONE (14:40)
[2022-05-04] MEDS ORDERED: LORazepam 2 MG/ML VIAL IV STA (15:36)
[2022-05-04] MEDS ORDERED: levETIRAcetam INJection 1,000 MG in D5W 100 ML IV ONE (15:45)
[2022-05-04] MEDS ORDERED: KEPP1TAB PO (15:47)
[2022-05-04 17:15] VITALS: BP 150/83
[2022-05-04 17:35] LABS: AMPHETAMINES LEVEL URINE NEGATIVE (NEGATIVE); BARBITURATES URINE NEGATIVE (NEGATIVE); BENZODIAZEPINES URINE NEGATIVE (NEGATIVE); CANNABINOIDS URINE NEGATIVE (NEGATIVE); COCAINE METABOLITE URINE NEGATIVE (NEGATIVE); METHADONE URINE NEGATIVE (NEGATIVE); OPIATES URINE NEGATIVE (NEGATIVE); PHENCYCLIDINE URINE NEGATIVE (NEGATIVE)
== END 2022-05-04 17:48 | disposition home or self-care (01) ==
LOC: M ED 12:37 → EDBD 12:37 → M ED 17:48
DX: G40.309 Generalized idiopathic epilepsy and epileptic syndromes, not intractable, without status epilepticus (principal); R55 Syncope and collapse; I45.19 Other right bundle-branch block; J45.909 Unspecified asthma, uncomplicated; Z79.51 Long term (current) use of inhaled steroids; Z79.83 Long term (current) use of bisphosphonates; Z79.899 Other long term (current) drug therapy; Z88.0 Allergy status to penicillin; Z88.6 Allergy status to analgesic agent; Z91.02 Food additives allergy status
CPT/HCPCS: 70450; 71046; 80048; 80076; 80143; 80307; 81000; 81015; 82077; 82550; 82553; 83605; 84443; 84703; 85025; 87086; 93005; 93041; 94760; 96365; 96366; 96375; 99285; J1953; J2060; J2405

== ENCOUNTER → 2022-06-01 | Outpatient (REF) | payer BC ==
[~2022-06-01] MED LIST changes: +KEPP1TAB PO
== END ==
LOC: M LAB REF 09:05
PROVIDERS: ATTEND Nurse Practitioner Family
DX: R19.7 Diarrhea, unspecified (principal)

== ENCOUNTER 2022-07-15 06:18 | Emergency (ER) | payer BC ==
[~2022-07-15] VITALS: Ht 154.9 cm; Wt 95.3 kg
[2022-07-15] MEDS ORDERED: ONDANSETRON 4MG 2ML VIAL IV ONE (08:25)
[2022-07-15] MEDS ORDERED: ACETAMINOPHEN TAB 650MG DOSE (2X325MG) PO ONE (08:25)
[2022-07-15] MEDS ORDERED: NS 1,000 ML IV ONE (08:25)
[2022-07-15] MEDS ORDERED: KETOROLAC 30 MG/ML 1ML VIAL IV ONE (08:25)
[2022-07-15] MEDS ORDERED: KETO10TAB PO (10:51)
[2022-07-15 10:57] VITALS: BP 132/86
== END 2022-07-15 11:05 | disposition home or self-care (01) ==
LOC: M ED 06:18
DX: G43.909 Migraine, unspecified, not intractable, without status migrainosus (principal); Z88.0 Allergy status to penicillin; Z88.6 Allergy status to analgesic agent; Z88.8 Allergy status to other drugs, medicaments and biological substances; Z79.51 Long term (current) use of inhaled steroids; Z79.83 Long term (current) use of bisphosphonates; Z79.52 Long term (current) use of systemic steroids; Z79.899 Other long term (current) drug therapy
CPT/HCPCS: 96361; 96374; 96375; 99284; J1100; J1885; J2405

== ENCOUNTER → 2022-08-02 | Outpatient (REF) | payer BC ==
[~2022-08-02] MED LIST changes: +KETO10TAB PO
== END ==
LOC: M LAB REF 11:23
PROVIDERS: ATTEND Nurse Practitioner Family
DX: R19.7 Diarrhea, unspecified (principal)

== ENCOUNTER → 2022-09-09 | Outpatient (CLI) | payer BC | LOC: M PLAIMG 10:06 | PROVIDERS: ATTEND Nurse Practitioner Family | DX: G43.909 Migraine, unspecified, not intractable, without status migrainosus (principal) ==

== ENCOUNTER → 2022-09-09 | Outpatient (CLI) | payer BC ==
[2022-09-09 14:41] LABS: BASO % 0.3 % (0.0-1.0); EOS # 0.1 10^3/uL (0.0-0.5); HEMOGLOBIN 12.9 g/dl (12.0-15.5); LYMPH # 2.7 10^3/uL (1.5-5.0); LYMPH % 24.4 % (24.0-44.0); MEAN CORPUSCULAR HEMOGLOBIN 25.4 pg (27.0-33.0); MEAN CORPUSCULAR HGB CONC 30.7 g/dl (32.0-36.5); MEAN CORPUSCULAR VOLUME 82.7 fl (80.0-96.0); MONO # 0.7 10^3/uL (0.0-0.8); MONO % 6.6 % (2.0-8.0); NEUTROPHILS # 7.6 10^3/uL (1.5-8.5); NEUTROPHILS % 67.3 % (36.0-66.0); PLATELET COUNT, AUTOMATED 383 10^3/uL (150-450); RED BLOOD COUNT 5.08 10^6/uL (4.00-5.40); WHITE BLOOD COUNT 11.2 10^3/uL (4.0-10.0)
[2022-09-09 14:47] LABS: ALBUMIN 3.7 G/DL (3.2-5.2); ALKALINE PHOSPHATASE 59 U/L (46-116); ALT/SGPT 15 U/L (7.0-40); AST/SGOT 12 U/L (<34); BILIRUBIN,TOTAL 0.2 MG/DL (0.3-1.2); BLOOD UREA NITROGEN 9 MG/DL (9-23); CALCIUM LEVEL 8.5 MG/DL (8.5-10.1); CARBON DIOXIDE LEVEL 25 MMOL/L (20-31); CHLORIDE LEVEL 108 MMOL/L (98-107); CREATININE FOR GFR 0.66 MG/DL (0.55-1.30); GLOMERULAR FILTRATION RATE > 60.0 (>60); GLUCOSE, FASTING 86 MG/DL (60-100); IRON (FE) 16 UG/DL (50-170); PERCENT SATURATION 4.3 % (13.2-45.0); SODIUM LEVEL 140 MMOL/L (136-145); TOTAL IRON BINDING CAPACITY 375 UG/DL (250-425); TOTAL PROTEIN 6.9 G/DL (5.7-8.2)
[2022-09-09 14:49] LABS: FREE T4 0.97 NG/DL (0.89-1.76); THYROID STIMULATING HORMONE 0.839 uIU/ML (0.55-4.78); TOTAL 25(OH) VITAMIN D 30.8 NG/ML (20.0-100.0)
[2022-09-09 15:47] LABS: HEMOGLOBIN A1c 5.2 % (4.0-6.0)
== END ==
LOC: M WUC 09-07 08:52 → M PLALAB 13:03
PROVIDERS: ATTEND Nurse Practitioner Family
DX: G43.909 Migraine, unspecified, not intractable, without status migrainosus (principal); M25.40 Effusion, unspecified joint; L40.9 Psoriasis, unspecified; Z86.39 Personal history of other endocrine, nutritional and metabolic disease; Z86.2 Personal history of diseases of the blood and blood-forming organs and certain disorders involving the immune mechanism

== ENCOUNTER 2022-10-09 09:27 | Day surgery (SDC) | payer BC ==
[~2022-10-09] VITALS: Ht 154.9 cm; Wt 93.0 kg
[~2022-10-09 09:27] MED LIST changes: +NS 1,000 ML IV ONE; +PROP80TA PO
[2022-10-09] MEDS ORDERED: propofoL 200 MG/20 ML VIAL As Ordered ONE (12:14)
[2022-10-09 12:45] VITALS: BP 119/75
== END 2022-10-09 12:55 | disposition home or self-care (01) ==
LOC: M OPP 09:27
PROVIDERS: ATTEND Internal Medicine Gastroenterology
DX: K64.4 Residual hemorrhoidal skin tags (principal); K64.8 Other hemorrhoids; K51.50 Left sided colitis without complications; K52.9 Noninfective gastroenteritis and colitis, unspecified; Z79.51 Long term (current) use of inhaled steroids; Z79.899 Other long term (current) drug therapy; Z88.0 Allergy status to penicillin; Z88.8 Allergy status to other drugs, medicaments and biological substances; Z91.040 Latex allergy status; Z91.041 Radiographic dye allergy status

== ENCOUNTER → 2022-12-23 | Outpatient (CLI) | payer BC ==
[~2022-12-23] VITALS: Ht 160 cm; Wt 93.4 kg
[~2022-12-23] MED LIST changes: -NS 1,000 ML IV ONE; +RAME8TAB2
[2022-12-23 10:31] VITALS: BP 126/88; O2SAT 100
== END ==
LOC: M PAL 10:18
PROVIDERS: ATTEND Nurse Practitioner Adult Health
DX: L40.50 Arthropathic psoriasis, unspecified (principal); Z51.5 Encounter for palliative care; Z79.899 Other long term (current) drug therapy; Z79.3 Long term (current) use of hormonal contraceptives; Z86.61 Personal history of infections of the central nervous system; Z88.0 Allergy status to penicillin; Z91.040 Latex allergy status; Z88.6 Allergy status to analgesic agent; Z88.8 Allergy status to other drugs, medicaments and biological substances; Z91.02 Food additives allergy status

== ENCOUNTER 2023-01-16 15:47 | Emergency (ER) | payer BC ==
[~2023-01-16] VITALS: Ht 154.9 cm; Wt 94.5 kg
[2023-01-16] MEDS ORDERED: levETIRAcetam INJection 500 MG in D5W MINI-BAG PLUS 100 ML IV ONE ×2 (16:10→17:30)
[2023-01-16 16:49] LABS: BASO # 0.1 10^3/uL (0.0-0.2); BASO % 0.5 % (0.0-1.0); EOS # 0.2 10^3/uL (0.0-0.5); EOS % 1.6 % (0.0-3.0); HEMATOCRIT 44.4 % (36.0-47.0); HEMOGLOBIN 13.5 g/dl (12.0-15.5); LYMPH # 4.8 10^3/uL (1.5-5.0); LYMPH % 31.2 % (24.0-44.0); MEAN CORPUSCULAR HEMOGLOBIN 25.7 pg (27.0-33.0); MEAN CORPUSCULAR HGB CONC 30.4 g/dl (32.0-36.5); MEAN CORPUSCULAR VOLUME 84.4 fl (80.0-96.0); MONO # 1.4 10^3/uL (0.0-0.8); MONO % 8.8 % (2.0-8.0); NEUTROPHILS # 8.8 10^3/uL (1.5-8.5); NEUTROPHILS % 57.3 % (36.0-66.0); PLATELET COUNT, AUTOMATED 419 10^3/uL (150-450); RED BLOOD COUNT 5.26 10^6/uL (4.00-5.40); WHITE BLOOD COUNT 15.3 10^3/uL (4.0-10.0)
[2023-01-16 16:57] LABS: BLOOD UREA NITROGEN 7 MG/DL (9-23); CALCIUM LEVEL 9.8 MG/DL (8.5-10.1); CARBON DIOXIDE LEVEL 18 MMOL/L (20-31); CHLORIDE LEVEL 107 MMOL/L (98-107); CREATININE FOR GFR 0.88 MG/DL (0.55-1.30); GLOMERULAR FILTRATION RATE > 60.0 (>60); GLUCOSE, FASTING 91 MG/DL (60-100); SODIUM LEVEL 146 MMOL/L (136-145)
[2023-01-16 17:00] LABS: HCG, SERUM QUALITATIVE NEGATIVE (NEGATIVE)
[2023-01-16] MEDS ORDERED: KEPP10002 PO (17:29)
[2023-01-16] MEDS ORDERED: IBUPROFEN 400MG TAB PO ONE (17:55)
[2023-01-16] MEDS ORDERED: ACETAMINOPHEN 325 MG TAB PO ONE (17:55)
[2023-01-16 21:21] VITALS: BP 128/73; TEMP 97.8; O2SAT 98
== END 2023-01-16 21:24 | disposition home or self-care (01) ==
LOC: M ED 15:47 → EDBD 15:47 → M ED 21:24
DX: N39.0 Urinary tract infection, site not specified (principal); G40.909 Epilepsy, unspecified, not intractable, without status epilepticus; J45.909 Unspecified asthma, uncomplicated; F12.10 Cannabis abuse, uncomplicated; Z88.0 Allergy status to penicillin; Z88.1 Allergy status to other antibiotic agents; Z88.8 Allergy status to other drugs, medicaments and biological substances; Z91.040 Latex allergy status; Z79.52 Long term (current) use of systemic steroids; Z79.83 Long term (current) use of bisphosphonates; Z79.899 Other long term (current) drug therapy
CPT/HCPCS: 80048; 80180; 84703; 85025; 87486; 87581; 87633; 87798; 96365; 96366; 99285; J1953

== ENCOUNTER → 2023-04-21 | Outpatient (CLI) | payer BC ==
[~2023-04-21] MED LIST changes: +KEPP10002 PO
[2023-04-21 11:25] LABS: BASO % 0.3 % (0.0-1.0); EOS # 0.1 10^3/uL (0.0-0.5); EOS % 0.9 % (0.0-3.0); HEMATOCRIT 40.4 % (36.0-47.0); HEMOGLOBIN 12.5 g/dl (12.0-15.5); LYMPH # 2.1 10^3/uL (1.5-5.0); LYMPH % 20.8 % (24.0-44.0); MEAN CORPUSCULAR HEMOGLOBIN 25.4 pg (27.0-33.0); MEAN CORPUSCULAR HGB CONC 30.9 g/dl (32.0-36.5); MEAN CORPUSCULAR VOLUME 82.1 fl (80.0-96.0); MONO # 0.7 10^3/uL (0.0-0.8); MONO % 6.5 % (2.0-8.0); NEUTROPHILS # 7.3 10^3/uL (1.5-8.5); NEUTROPHILS % 71.1 % (36.0-66.0); PLATELET COUNT, AUTOMATED 372 10^3/uL (150-450); RED BLOOD COUNT 4.92 10^6/uL (4.00-5.40); WHITE BLOOD COUNT 10.3 10^3/uL (4.0-10.0)
[2023-04-21 11:47] LABS: ALBUMIN 3.4 G/DL (3.2-5.2); ALKALINE PHOSPHATASE 58 U/L (46-116); ALT/SGPT 15 U/L (7.0-40); AST/SGOT 11 U/L (<34); BILIRUBIN,TOTAL 0.3 MG/DL (0.3-1.2); BLOOD UREA NITROGEN 9 MG/DL (9-23); CALCIUM LEVEL 8.2 MG/DL (8.5-10.1); CARBON DIOXIDE LEVEL 26 MMOL/L (20-31); CHLORIDE LEVEL 109 MMOL/L (98-107); CREATININE FOR GFR 0.69 MG/DL (0.55-1.30); GLOMERULAR FILTRATION RATE > 60.0 (>60); GLUCOSE, FASTING 104 MG/DL (60-100); POTASSIUM SERUM 4.4 MMOL/L (3.5-5.1); SODIUM LEVEL 143 MMOL/L (136-145); TOTAL PROTEIN 6.7 G/DL (5.7-8.2)
== END ==
LOC: M PLALAB 08:17
PROVIDERS: ATTEND Psychiatry & Neurology Neurology
DX: R56.9 Unspecified convulsions (principal)

== ENCOUNTER → 2023-12-22 | Outpatient (CLI) | payer BC ==
[~2023-12-22] MED LIST changes: +ONDA-282 PO; -ONDA4TAB6 PO
== END ==
LOC: M PAL 09:57
PROVIDERS: ATTEND Nurse Practitioner Family
DX: L40.52 Psoriatic arthritis mutilans (principal); G89.29 Other chronic pain; Z51.5 Encounter for palliative care; G40.909 Epilepsy, unspecified, not intractable, without status epilepticus

== ENCOUNTER 2024-06-07 13:24 | Emergency (ER) | payer BC ==
[~2024-06-07] VITALS: Ht 152.4 cm; Wt 88.6 kg
[2024-06-07] MEDS: diphenhydrAMINE 50MG/ML VIAL IV ONE (17:37)
[2024-06-07] MEDS: NS (Normal Saline) 0.9% 1,000 ML IV ONE (17:37)
[2024-06-07] MEDS: METOCLOPRAMIDE INJ 10MG/2ML VIAL IV ONE (17:38)
[2024-06-07] MEDS: KETOROLAC 30 MG/ML 1ML VIAL IV ONE (17:43)
[2024-06-07 17:57] LABS: BLOOD UREA NITROGEN 7 MG/DL (9-23); C REACTIVE PROTEIN QUANTITATIV 0.77 MG/DL (<1.0); CALCIUM LEVEL 9.3 MG/DL (8.5-10.1); CARBON DIOXIDE LEVEL 21 MMOL/L (20-31); CHLORIDE LEVEL 108 MMOL/L (98-107); CREATININE FOR GFR 0.77 MG/DL (0.55-1.30); GLOMERULAR FILTRATION RATE > 60.0 (>60); GLUCOSE, FASTING 81 MG/DL (60-100); MAGNESIUM LEVEL 2.1 MG/DL (1.8-2.4); POTASSIUM SERUM 4.3 MMOL/L (3.5-5.1); SODIUM LEVEL 141 MMOL/L (136-145)
[2024-06-07 17:59] LABS: HCG, SERUM QUALITATIVE NEGATIVE (NEGATIVE)
[2024-06-07 18:03] LABS: BASO % 0.5 % (0.0-1.0); EOS % 0.5 % (0.0-3.0); HEMATOCRIT 41.7 % (36.0-47.0); HEMOGLOBIN 13.4 g/dl (12.0-15.5); LYMPH # 2.6 10^3/uL (1.5-5.0); LYMPH % 29.7 % (24.0-44.0); MEAN CORPUSCULAR HEMOGLOBIN 26.6 pg (27.0-33.0); MEAN CORPUSCULAR HGB CONC 32.1 g/dl (32.0-36.5); MEAN CORPUSCULAR VOLUME 82.7 fl (80.0-96.0); MONO # 0.6 10^3/uL (0.0-0.8); MONO % 7.1 % (2.0-8.0); NEUTROPHILS # 5.4 10^3/uL (1.5-8.5); PLATELET COUNT, AUTOMATED 346 10^3/uL (150-450); RED BLOOD COUNT 5.04 10^6/uL (4.00-5.40); WHITE BLOOD COUNT 8.6 10^3/uL (4.0-10.0)
[2024-06-07 18:09] LABS: PROCALCITONIN 0.04 ng/ml
[2024-06-07 18:12] LABS: ERYTHROCYTE SEDIMENTATION RATE 24 mm/hr (0-20)
[2024-06-07 19:06] VITALS: BP 128/77; TEMP 98.1; O2SAT 96
== END 2024-06-07 19:18 | disposition home or self-care (01) ==
LOC: M ED 13:24
DX: G43.909 Migraine, unspecified, not intractable, without status migrainosus (principal); G40.909 Epilepsy, unspecified, not intractable, without status epilepticus; L40.52 Psoriatic arthritis mutilans; F12.10 Cannabis abuse, uncomplicated; Z79.52 Long term (current) use of systemic steroids; Z79.83 Long term (current) use of bisphosphonates; Z79.899 Other long term (current) drug therapy; Z88.0 Allergy status to penicillin; Z88.8 Allergy status to other drugs, medicaments and biological substances; Z91.040 Latex allergy status; Z91.048 Other nonmedicinal substance allergy status
CPT/HCPCS: 80048; 83735; 84145; 84703; 85025; 85652; 86140; 87486; 87581; 87633; 87798; 96361; 96374; 96375; 99284; J1100; J1200; J1885; J2765

== ENCOUNTER → 2024-07-27 | Outpatient (CLI) | payer BC ==
[2024-07-27 19:00] LABS: BASO % 0.3 % (0.0-1.0); EOS # 0.1 10^3/uL (0.0-0.5); EOS % 1.2 % (0.0-3.0); HEMATOCRIT 42.4 % (36.0-47.0); HEMOGLOBIN 13.5 g/dl (12.0-15.5); LYMPH # 2.8 10^3/uL (1.5-5.0); LYMPH % 29.6 % (24.0-44.0); MEAN CORPUSCULAR HGB CONC 31.8 g/dl (32.0-36.5); MEAN CORPUSCULAR VOLUME 84.8 fl (80.0-96.0); MONO # 0.8 10^3/uL (0.0-0.8); MONO % 7.8 % (2.0-8.0); NEUTROPHILS # 5.8 10^3/uL (1.5-8.5); NEUTROPHILS % 60.7 % (36.0-66.0); PLATELET COUNT, AUTOMATED 323 10^3/uL (150-450); WHITE BLOOD COUNT 9.6 10^3/uL (4.0-10.0)
[2024-07-27 19:25] LABS: FREE T4 1.22 NG/DL (0.89-1.76); THYROID STIMULATING HORMONE 0.426 uIU/ML (0.55-4.78)
[2024-07-27 19:27] LABS: ALBUMIN 3.9 G/DL (3.2-5.2); ALKALINE PHOSPHATASE 57 U/L (35-104); ALT/SGPT 17 U/L (7.0-40); AST/SGOT 9 U/L (<34); BILIRUBIN,TOTAL 0.3 MG/DL (0.3-1.2); BLOOD UREA NITROGEN 6 MG/DL (9-23); CALCIUM LEVEL 8.7 MG/DL (8.5-10.1); CARBON DIOXIDE LEVEL 21 MMOL/L (20-31); CHLORIDE LEVEL 110 MMOL/L (98-107); CHOLESTEROL LEVEL 159 MG/DL (<200); CHOLESTEROL RISK RATIO 4.67 (<5); CREATININE FOR GFR 0.71 MG/DL (0.55-1.30); GLOMERULAR FILTRATION RATE > 60.0 (>60); GLUCOSE, FASTING 73 MG/DL (60-100); IRON (FE) 38 UG/DL (50-170); LDL CHOLESTEROL 100.2 MG/DL (<100); MAGNESIUM LEVEL 1.9 MG/DL (1.8-2.4); POTASSIUM SERUM 4.3 MMOL/L (3.5-5.1); SODIUM LEVEL 144 MMOL/L (136-145); TOTAL PROTEIN 7.1 G/DL (5.7-8.2); TRIGLYCERIDES LEVEL 124 MG/DL (<150)
== END ==
LOC: M WUC 14:48
PROVIDERS: ATTEND Nurse Practitioner Family
DX: L40.9 Psoriasis, unspecified (principal); M79.10 Myalgia, unspecified site; G43.909 Migraine, unspecified, not intractable, without status migrainosus; E66.01 Morbid (severe) obesity due to excess calories; R56.9 Unspecified convulsions; Z86.39 Personal history of other endocrine, nutritional and metabolic disease; Z86.2 Personal history of diseases of the blood and blood-forming organs and certain disorders involving the immune mechanism

== ENCOUNTER 2024-09-03 02:53 | Inpatient (IN) | payer BC ==
[~2024-09-03] VITALS: Ht 152.4 cm; Wt 81.8 kg
[2024-09-03 03:33] LABS: BASO % 0.3 % (0.0-1.0); EOS # 0.1 10^3/uL (0.0-0.5); EOS % 0.4 % (0.0-3.0); HEMATOCRIT 40.5 % (36.0-47.0); HEMOGLOBIN 13.1 g/dl (12.0-15.5); LYMPH # 1.6 10^3/uL (1.5-5.0); LYMPH % 13.6 % (24.0-44.0); MEAN CORPUSCULAR HEMOGLOBIN 27.8 pg (27.0-33.0); MEAN CORPUSCULAR HGB CONC 32.3 g/dl (32.0-36.5); MEAN CORPUSCULAR VOLUME 85.8 fl (80.0-96.0); MONO # 0.7 10^3/uL (0.0-0.8); MONO % 6.1 % (2.0-8.0); NEUTROPHILS # 9.1 10^3/uL (1.5-8.5); NEUTROPHILS % 79.2 % (36.0-66.0); PLATELET COUNT, AUTOMATED 316 10^3/uL (150-450); RED BLOOD COUNT 4.72 10^6/uL (4.00-5.40); WHITE BLOOD COUNT 11.5 10^3/uL (4.0-10.0)
[2024-09-03 03:58] LABS: BLOOD UREA NITROGEN 10 MG/DL (9-23); CALCIUM LEVEL 8.7 MG/DL (8.5-10.1); CARBON DIOXIDE LEVEL 19 MMOL/L (20-31); CHLORIDE LEVEL 114 MMOL/L (98-107); CREATININE FOR GFR 0.76 MG/DL (0.55-1.30); GLOMERULAR FILTRATION RATE > 60.0 (>60); GLUCOSE, FASTING 135 MG/DL (60-100); POTASSIUM SERUM 4.3 MMOL/L (3.5-5.1); SODIUM LEVEL 145 MMOL/L (136-145)
[2024-09-03 04:44] LABS: KETONE, URINE AUTO RFX NEGATIVE (NEGATIVE); LEUKOCYTE ESTERASE UR AUTO RFX 3+ (NEGATIVE); MUCUS, URINE RFX SMALL (NEGATIVE); NITRITE, URINE AUTO RFX NEGATIVE (NEGATIVE); RBC, URINE AUTO RFX TNTC /HPF (0-3); SQUAM EPITHELIAL CELL UR AURFX 18 /HPF (0-6); WBC, URINE AUTO RFX 54 /HPF (0-3)
[2024-09-03] MEDS: KETOROLAC 30 MG/ML 1ML VIAL IV ONE (04:46)
[2024-09-03] MEDS: ONDANSETRON 4MG 2ML VIAL IV ONE (04:48)
[2024-09-03 06:08] LABS: HCG, SERUM QUALITATIVE NEGATIVE (NEGATIVE)
[2024-09-03] MEDS: NS (Normal Saline) 0.9% 1,000 ML IV ONE (07:27)
[2024-09-03] MEDS ORDERED: ELET40TA PO (07:34)
[2024-09-03] MEDS ORDERED: TOPI-21 PO (07:34)
[2024-09-03] MEDS: MORPHINE 4 MG/ML 1ML VIAL IV ONE ×2 (07:45→10:11)
[2024-09-03] MEDS: cefTRIAXone SOD 2 GM in DEXTROSE 5% (D5W) ADV/MINI-BAG 50 ML IV ONE (07:54)
[2024-09-03] MEDS ORDERED: HOME MED LIST COMPLETE! XX SCH (11:10)
[2024-09-03] MEDS ORDERED: MORPHINE 4 MG/ML 1ML VIAL IV PRN (11:20)
[2024-09-03] MEDS ORDERED: ALBUTEROL 90 MCG/ACT 8GM HFA INHALER INH PRN (11:25)
[2024-09-03] MEDS ORDERED: ELETRIPTAN 40 MG PO PRN (11:25)
[2024-09-03] MEDS: TOPIRAMATE (TopAMAX) 25 MG TAB PO SCH (11:50)
[2024-09-03] MEDS: LR 1,000 ML IV SCH (11:50)
[2024-09-03] MEDS: KETOROLAC 30 MG/ML 1ML VIAL IV PRN (11:50)
[2024-09-03] MEDS: ONDANSETRON 4MG 2ML VIAL IV PRN (17:35)
[2024-09-03] MEDS: ACETAMINOPHEN *IV* 1,000 MG in IV 1 EA IV ONE (18:40)
[2024-09-04] VITALS (9 sets, daily range): BP systolic 121–135; BP diastolic 69–82; TEMP 97.3–98.1; O2SAT 92–98
[2024-09-04] MEDS: ACETAMINOPHEN 500 MG TAB PO PRN (05:21)
[2024-09-04 06:02] LABS: HEMATOCRIT 37.3 % (36.0-47.0); HEMOGLOBIN 11.9 g/dl (12.0-15.5); MEAN CORPUSCULAR HGB CONC 31.9 g/dl (32.0-36.5); MEAN CORPUSCULAR VOLUME 87.8 fl (80.0-96.0); PLATELET COUNT, AUTOMATED 268 10^3/uL (150-450); RED BLOOD COUNT 4.25 10^6/uL (4.00-5.40); WHITE BLOOD COUNT 17.1 10^3/uL (4.0-10.0)
[2024-09-04 06:39] LABS: CREATININE FOR GFR 3.7 MG/DL (0.55-1.30); GLOMERULAR FILTRATION RATE 16.3 (>60)
[2024-09-04] MEDS: ENOXAPARIN 40MG/0.4ML SYRINGE (J1650 PER 10MG) SC SCH (08:30)
[2024-09-04] MEDS: cefTRIAXone SOD 2 GM in DEXTROSE 5% (D5W) ADV/MINI-BAG 50 ML IV SCH (09:24)
[2024-09-04] MEDS ORDERED: HYDROMORPHONE HCL 0.5 MG/ 0.5 ML SYRINGE IV PRN ×2 (09:55→14:20)
[2024-09-04] MEDS: HYDROMORPHONE HCL 0.5 MG/ 0.5 ML SYRINGE IV PRN (10:43)
[2024-09-04] MEDS ORDERED: fentaNYL 100 MCG/2 ML INJECTION As Ordered ONE (13:29)
[2024-09-04] MEDS ORDERED: MIDAZOLAM INJ 2MG/2ML VIAL As Ordered ONE (13:29)
[2024-09-04] MEDS ORDERED: propofoL 200 MG/20 ML VIAL As Ordered ONE (13:31)
[2024-09-04] MEDS ORDERED: LIDOCAINE 2% 100MG/5ML SDV (FOR ANES.) As Ordered ONE (13:31)
[2024-09-04] MEDS ORDERED: SUCCINYLCHOLINE 100MG/5ML SYRINGE As Ordered ONE (13:31)
[2024-09-04] MEDS: LIDOCAINE 2% 5ML JELLY UROJET As Ordered ONE (13:33)
[2024-09-04] MEDS: LIDOCAINE 2% JELLY 6ML SYRINGE As Ordered ONE (13:53)
[2024-09-04] MEDS: ISOVUE-300 61% 100ML VIAL As Ordered ONE (14:00)
[2024-09-04] MEDS ORDERED: SUGAMMADEX SODIUM 500 MG/5 ML VIAL (BRIDION) As Ordered ONE (14:01)
[2024-09-04] MEDS ORDERED: fentaNYL 100 MCG/2 ML INJECTION IV PRN (14:20)
[2024-09-04] MEDS ORDERED: ONDANSETRON 4MG 2ML VIAL IV PRN (14:20)
[2024-09-04] MEDS ORDERED: oxyCODONE 5MG TAB PO PRN (14:20)
[2024-09-04] MEDS ORDERED: oxyBUTYnin 5 MG TAB PO PRN (14:30)
[2024-09-04] MEDS: HEPARIN SOD (PORCINE) 5000UNITS/ML 1ML VIAL/SYRINGE SQ SCH (15:28)
[2024-09-05 02:04] VITALS: TEMP 98.3
[2024-09-05 04:23] VITALS: BP 131/77; TEMP 98.9; O2SAT 96
[2024-09-05 06:42] LABS: ALBUMIN 3.1 G/DL (3.2-5.2); CALCIUM LEVEL 7.8 MG/DL (8.5-10.1); CREATININE FOR GFR 1.71 MG/DL (0.55-1.30); GLOMERULAR FILTRATION RATE 41.1 (>60); PHOSPHORUS LEVEL 4.9 MG/DL (2.5-4.9); POTASSIUM SERUM 3.7 MMOL/L (3.5-5.1)
[2024-09-05 07:24] LABS: BASO % 0.1 % (0.0-1.0); HEMATOCRIT 37.4 % (36.0-47.0); HEMOGLOBIN 11.9 g/dl (12.0-15.5); LYMPH # 1.7 10^3/uL (1.5-5.0); LYMPH % 11.7 % (24.0-44.0); MEAN CORPUSCULAR HEMOGLOBIN 27.4 pg (27.0-33.0); MEAN CORPUSCULAR HGB CONC 31.8 g/dl (32.0-36.5); MEAN CORPUSCULAR VOLUME 86.2 fl (80.0-96.0); MONO # 1.3 10^3/uL (0.0-0.8); MONO % 8.9 % (2.0-8.0); NEUTROPHILS # 11.2 10^3/uL (1.5-8.5); NEUTROPHILS % 78.9 % (36.0-66.0); PLATELET COUNT, AUTOMATED 285 10^3/uL (150-450); RED BLOOD COUNT 4.34 10^6/uL (4.00-5.40); WHITE BLOOD COUNT 14.2 10^3/uL (4.0-10.0)
[2024-09-05 08:40] VITALS: BP 119/74; TEMP 97.5; O2SAT 97
[2024-09-05 12:18] VITALS: BP 113/69; TEMP 97.9; O2SAT 99
[2024-09-05] MEDS ORDERED: PERCOCET 5MG/325MG TAB PO PRN (14:05)
[2024-09-05] MEDS: PERCOCET 5MG/325MG TAB PO PRN (15:31)
[2024-09-05 16:18] VITALS: BP 132/77; TEMP 97.9; O2SAT 100
[2024-09-05 19:53] VITALS: BP 125/70; TEMP 97.9; O2SAT 98
[2024-09-06 04:00] VITALS: BP 124/78; TEMP 97.7; O2SAT 98
[2024-09-06 04:55] LABS: BASO % 0.4 % (0.0-1.0); EOS # 0.1 10^3/uL (0.0-0.5); EOS % 0.6 % (0.0-3.0); HEMATOCRIT 38.5 % (36.0-47.0); HEMOGLOBIN 12.2 g/dl (12.0-15.5); LYMPH # 2.8 10^3/uL (1.5-5.0); LYMPH % 26.5 % (24.0-44.0); MEAN CORPUSCULAR HEMOGLOBIN 27.5 pg (27.0-33.0); MEAN CORPUSCULAR HGB CONC 31.7 g/dl (32.0-36.5); MEAN CORPUSCULAR VOLUME 86.7 fl (80.0-96.0); MONO % 9.7 % (2.0-8.0); NEUTROPHILS # 6.7 10^3/uL (1.5-8.5); NEUTROPHILS % 62.5 % (36.0-66.0); PLATELET COUNT, AUTOMATED 278 10^3/uL (150-450); RED BLOOD COUNT 4.44 10^6/uL (4.00-5.40); WHITE BLOOD COUNT 10.7 10^3/uL (4.0-10.0)
[2024-09-06 05:29] LABS: BLOOD UREA NITROGEN 7 MG/DL (9-23); CALCIUM LEVEL 8.2 MG/DL (8.5-10.1); CARBON DIOXIDE LEVEL 25 MMOL/L (20-31); CHLORIDE LEVEL 111 MMOL/L (98-107); GLOMERULAR FILTRATION RATE > 60.0 (>60); GLUCOSE, FASTING 77 MG/DL (60-100); POTASSIUM SERUM 3.7 MMOL/L (3.5-5.1); SODIUM LEVEL 146 MMOL/L (136-145)
[2024-09-06] MEDS ORDERED: CEFD1CAP9 PO (08:53)
[2024-09-06] MEDS ORDERED: CIPR250T3 PO (09:43)
== END 2024-09-06 13:31 | disposition home or self-care (01) | DRG 463 ==
LOC: M ED 02:53 → M ED INP 11:19 → M MSPAV 09-04 11:33
PROVIDERS: ADMIT Internal Medicine; ATTEND Internal Medicine
PROC: 0T788DZ Dilation of Bilateral Ureters with Intraluminal Device, Via Natural or Artificial Opening Endoscopic (ICD-10-PCS; principal; 2024-09-04 12:30)
DX: N10 Acute pyelonephritis (principal); N17.9 Acute kidney failure, unspecified; E87.20 Acidosis, unspecified; N13.30 Unspecified hydronephrosis; L40.50 Arthropathic psoriasis, unspecified; G40.909 Epilepsy, unspecified, not intractable, without status epilepticus; G43.909 Migraine, unspecified, not intractable, without status migrainosus; Z79.899 Other long term (current) drug therapy; Z88.0 Allergy status to penicillin; Z91.040 Latex allergy status; Z88.8 Allergy status to other drugs, medicaments and biological substances

== ENCOUNTER 2024-10-01 14:01 | Inpatient (IN) | payer BC ==
[~2024-10-01] VITALS: Ht 152.4 cm; Wt 76.6 kg
[~2024-10-01 14:01] MED LIST changes: +ACET-907 PO; +AZIT500T5 PO; +CEFD1CAP9 PO; +CIPR250T3 PO; +ELET40TA PO; +TOPI-21 PO; +ZOFR4TAB16 PO
[2024-10-01 14:59] LABS: LIPASE 27 U/L (12-53)
[2024-10-01 15:01] LABS: BASO % 0.2 % (0.0-1.0); EOS % 0.1 % (0.0-3.0); HEMATOCRIT 36.9 % (36.0-47.0); HEMOGLOBIN 12.1 g/dl (12.0-15.5); LYMPH # 1.6 10^3/uL (1.5-5.0); LYMPH % 9.4 % (24.0-44.0); MEAN CORPUSCULAR HEMOGLOBIN 27.5 pg (27.0-33.0); MEAN CORPUSCULAR HGB CONC 32.8 g/dl (32.0-36.5); MEAN CORPUSCULAR VOLUME 83.9 fl (80.0-96.0); MONO # 1.9 10^3/uL (0.0-0.8); MONO % 10.8 % (2.0-8.0); NEUTROPHILS # 13.6 10^3/uL (1.5-8.5); NEUTROPHILS % 78.8 % (36.0-66.0); PLATELET COUNT, AUTOMATED 404 10^3/uL (150-450); WHITE BLOOD COUNT 17.2 10^3/uL (4.0-10.0)
[2024-10-01] MEDS: KETOROLAC 30 MG/ML 1ML VIAL IV ONE (15:01)
[2024-10-01] MEDS: ONDANSETRON 4MG 2ML VIAL IV ONE (15:01)
[2024-10-01 15:02] LABS: ALBUMIN 3.1 G/DL (3.2-5.2); ALKALINE PHOSPHATASE 85 U/L (35-104); ALT/SGPT 22 U/L (7.0-40); AST/SGOT 22 U/L (<34); BILIRUBIN,DIRECT 0.2 MG/DL (<0.4); BILIRUBIN,TOTAL 0.4 MG/DL (0.3-1.2); TOTAL PROTEIN 7.5 G/DL (5.7-8.2)
[2024-10-01] MEDS: NS (Normal Saline) 0.9% 1,000 ML IV ONE (16:04)
[2024-10-01] MEDS ORDERED: ISOVUE-370 76% 100ML VIAL As Ordered ONE (16:57)
[2024-10-01] MEDS: ACETAMINOPHEN *IV* 1,000 MG in IV 1 EA IV ONE (17:10)
[2024-10-01 18:12] LABS: APPEARANCE, URINE MANUAL TURBID (CLEAR); COLOR, URINE MANUAL AMBER (YELLOW)
[2024-10-01 18:13] LABS: BILIRUBIN, URINE MANUAL OBSCURED (NEGATIVE); BLOOD URINE MANUAL POSITIVE (NEGATIVE); GLUCOSE, URINE (UA) MANUAL NEGATIVE (NEGATIVE); KETONE, URINE MANUAL 3+ mg/dL (NEGATIVE); LEUKOCYTE ESTERASE, URINE MAN POSITIVE (NEGATIVE); NITRITE, URINE MANUAL OBSCURED (NEGATIVE); PROTEIN, URINE MANUAL 3+ mg/dL (NEGATIVE); UROBILINOGEN, URINE MANUAL OBSCURED mg/dl (NORMAL)
[2024-10-01 18:14] LABS: RBC, URINE TNTC /hpf (0-3); WBC, URINE TNTC /hpf (0-3)
[2024-10-01 18:15] LABS: BACTERIA, URINE LARGE AMOUNT; HYALINE CAST, URINE NONE SEEN /lpf (0-1); MUCUS, URINE SMALL AMOUNT (NEGATIVE); SQUAMOUS EPITHELIAL CELL URINE MOD AMOUNT /hpf (SMALL AMT); YEAST, URINE SMALL AMOUNT
[2024-10-01] MEDS: cefTRIAXone SOD 2 GM in DEXTROSE 5% (D5W) ADV/MINI-BAG 50 ML IV ONE (19:09)
[2024-10-01] MEDS ORDERED: cefTRIAXone SOD 2 GM in DEXTROSE 5% (D5W) ADV/MINI-BAG 50 ML IV SCH (19:35)
[2024-10-01] MEDS ORDERED: MOM 30ML SUSPENSION UDC PO PRN (19:35)
[2024-10-01] MEDS: NS (Normal Saline) 0.9% 1,000 ML IV SCH (19:55)
[2024-10-01 20:38] LABS: HCG, SERUM QUALITATIVE NEGATIVE (NEGATIVE)
[2024-10-01] MEDS ORDERED: ACET-683 PO (20:51)
[2024-10-01] MEDS ORDERED: ELET40TA PO (20:51)
[2024-10-01] MEDS ORDERED: OXYB5TAB14 PO (20:51)
[2024-10-01] MEDS ORDERED: PHEN-501 PO (20:51)
[2024-10-01] MEDS ORDERED: ONDA-83 PO (20:51)
[2024-10-01] MEDS ORDERED: HOME MED LIST COMPLETE! XX SCH (20:55)
[2024-10-01] MEDS: TOPIRAMATE 100 MG TAB PO SCH (21:00)
[2024-10-01 21:19] LABS: D-DIMER QUANT 1.52 ug/mL (<0.5); INR 1.27; PARTIAL THROMBOPLASTIN TIME 30.4 SECONDS (24.8-34.2); PROTHROMBIN TIME 16.2 SECONDS (12.5-14.5)
[2024-10-01 21:45] VITALS: BP 125/79; TEMP 99; O2SAT 99
[2024-10-01 21:57] VITALS: TEMP 102.1
[2024-10-01] MEDS: KETOROLAC 30 MG/ML 1ML VIAL IV PRN (22:32)
[2024-10-01 22:44] LABS: ALBUMIN 2.6 G/DL (3.2-5.2); BILIRUBIN,TOTAL 0.2 MG/DL (0.3-1.2); CREATININE FOR GFR 0.96 MG/DL (0.55-1.30); GLOMERULAR FILTRATION RATE 82.1 (>60); POTASSIUM SERUM 3.5 MMOL/L (3.5-5.1); TOTAL PROTEIN 6.4 G/DL (5.7-8.2)
[2024-10-01 23:24] VITALS: TEMP 100.6
[2024-10-02] VITALS (11 sets, daily range): BP systolic 120–133; BP diastolic 70–81; TEMP 97.7–102.9; O2SAT 95–98
[2024-10-02] MEDS ORDERED: PHENAZOPYRIDINE 100 MG TAB PO PRN (01:45)
[2024-10-02] MEDS ORDERED: oxyBUTYnin 5 MG TAB PO PRN (01:45)
[2024-10-02] MEDS ORDERED: PILL CUTTER 1 EACH XX PRN (01:55)
[2024-10-02] MEDS: ONDANSETRON 4MG 2ML VIAL IV PRN (02:00)
[2024-10-02] MEDS: ACETAMINOPHEN 325 MG TAB PO PRN (02:09)
[2024-10-02 08:19] LABS: CALCIUM LEVEL 7.8 MG/DL (8.5-10.1); CREATININE FOR GFR 1.01 MG/DL (0.55-1.30); GLOMERULAR FILTRATION RATE 77.3 (>60); POTASSIUM SERUM 3.6 MMOL/L (3.5-5.1)
[2024-10-02 08:26] LABS: BASO # 0.1 10^3/uL (0.0-0.2); BASO % 0.3 % (0.0-1.0); HEMATOCRIT 36.9 % (36.0-47.0); HEMOGLOBIN 11.6 g/dl (12.0-15.5); LYMPH # 1.3 10^3/uL (1.5-5.0); LYMPH % 5.7 % (24.0-44.0); MEAN CORPUSCULAR HGB CONC 31.4 g/dl (32.0-36.5); MONO # 1.6 10^3/uL (0.0-0.8); MONO % 6.8 % (2.0-8.0); NEUTROPHILS # 19.7 10^3/uL (1.5-8.5); NEUTROPHILS % 86.4 % (36.0-66.0); PLATELET COUNT, AUTOMATED 402 10^3/uL (150-450); RED BLOOD COUNT 4.29 10^6/uL (4.00-5.40); WHITE BLOOD COUNT 22.9 10^3/uL (4.0-10.0)
[2024-10-02] MEDS: PANTOPRAZOLE 40MG VIAL IV SCH (08:31)
[2024-10-02] MEDS ORDERED: MORPHINE 2 MG/ML 1ML VIAL IV PRN (09:30)
[2024-10-02] MEDS: SCOPOLAMINE 1MG TRANSDERMAL PATCH TOP ONE (10:15)
[2024-10-02] MEDS: PROMETHAZINE 25MG/ML 1ML VIAL IV ONE (10:37)
[2024-10-02] MEDS: ACETAMINOPHEN *IV* 1,000 MG in IV 1 EA IV ONE (12:35)
[2024-10-02] MEDS ORDERED: LIDOCAINE 2% 100MG/5ML SDV (FOR ANES.) As Ordered ONE (13:38)
[2024-10-02] MEDS ORDERED: propofoL 200 MG/20 ML VIAL As Ordered ONE (13:38)
[2024-10-02] MEDS ORDERED: ONDANSETRON 4MG 2ML VIAL As Ordered ONE (13:38)
[2024-10-02] MEDS ORDERED: fentaNYL 100 MCG/2 ML INJECTION As Ordered ONE (13:42)
[2024-10-02] MEDS ORDERED: MIDAZOLAM INJ 2MG/2ML VIAL As Ordered ONE (13:42)
[2024-10-02] MEDS ORDERED: HEPARIN SOD 5000UNITS/ML 1ML VIAL/SYRINGE SQ SCH (14:00)
[2024-10-02] MEDS ORDERED: ONDANSETRON 4MG 2ML VIAL IV PRN (14:45)
[2024-10-02] MEDS: LR 1,000 ML IV SCH (14:45)
[2024-10-02] MEDS ORDERED: oxyCODONE 5MG TAB PO PRN (14:45)
[2024-10-02] MEDS ORDERED: HYDROMORPHONE HCL 0.5 MG/ 0.5 ML SYRINGE IV PRN (14:45)
[2024-10-02] MEDS ORDERED: fentaNYL 100 MCG/2 ML INJECTION IV PRN (14:45)
[2024-10-02] MEDS: CEFEPIME HCL 2 GM in DEXTROSE 5% (D5W) ADV/MINI-BAG 50 ML IV SCH (15:27)
[2024-10-02] MEDS ORDERED: cefTRIAXone SOD 2 GM in DEXTROSE 5% (D5W) ADV/MINI-BAG 50 ML IV SCH (18:00)
[2024-10-03] VITALS: BP 118/77; TEMP 98.2; O2SAT 97
[2024-10-03 03:50] VITALS: BP 117/66; TEMP 97.9; O2SAT 96
[2024-10-03 04:00] VITALS: BP 117/66; TEMP 97.9; O2SAT 96
[2024-10-03 06:28] LABS: BASO % 0.1 % (0.0-1.0); HEMATOCRIT 29.4 % (36.0-47.0); LYMPH # 1.5 10^3/uL (1.5-5.0); LYMPH % 8.4 % (24.0-44.0); MEAN CORPUSCULAR HEMOGLOBIN 26.8 pg (27.0-33.0); MEAN CORPUSCULAR VOLUME 83.8 fl (80.0-96.0); MONO # 1.4 10^3/uL (0.0-0.8); MONO % 7.8 % (2.0-8.0); NEUTROPHILS # 14.4 10^3/uL (1.5-8.5); NEUTROPHILS % 82.4 % (36.0-66.0); PLATELET COUNT, AUTOMATED 332 10^3/uL (150-450); RED BLOOD COUNT 3.51 10^6/uL (4.00-5.40); WHITE BLOOD COUNT 17.5 10^3/uL (4.0-10.0)
[2024-10-03 06:35] LABS: HEMOGLOBIN 9.4 g/dl (12.0-15.5)
[2024-10-03 06:46] LABS: BLOOD UREA NITROGEN 7 MG/DL (9-23); CALCIUM LEVEL 7.4 MG/DL (8.5-10.1); CARBON DIOXIDE LEVEL 20 MMOL/L (20-31); CHLORIDE LEVEL 113 MMOL/L (98-107); CREATININE FOR GFR 0.74 MG/DL (0.55-1.30); GLOMERULAR FILTRATION RATE > 90.0 (>60); GLUCOSE, FASTING 108 MG/DL (60-100); MAGNESIUM LEVEL 1.8 MG/DL (1.8-2.4); POTASSIUM SERUM 3.3 MMOL/L (3.5-5.1); SODIUM LEVEL 144 MMOL/L (136-145)
[2024-10-03] MEDS ORDERED: LINE1TAB6 PO (10:38)
[2024-10-03 11:38] VITALS: BP 124/84; TEMP 97.9; O2SAT 96
== END 2024-10-03 13:16 | disposition home or self-care (01) | DRG 443 ==
LOC: M ED 14:01 → MERGE 14:02 → M ED INP 14:02 → M MSPAV 21:37 → OBSVTOIN 10-02 14:48
PROVIDERS: ADMIT Student in an Organized Health Care Education/Training Program; ATTEND Internal Medicine
PROC: 0TP980Z Removal of Drainage Device from Ureter, Via Natural or Artificial Opening Endoscopic (ICD-10-PCS; principal; 2024-10-02 14:00)
DX: T83.593A Infection and inflammatory reaction due to other urinary stents, initial encounter (principal); A41.9 Sepsis, unspecified organism; D89.89 Other specified disorders involving the immune mechanism, not elsewhere classified; N12 Tubulo-interstitial nephritis, not specified as acute or chronic; N13.6 Pyonephrosis; G43.909 Migraine, unspecified, not intractable, without status migrainosus; N39.0 Urinary tract infection, site not specified; F41.9 Anxiety disorder, unspecified; F32.A Depression, unspecified; Z91.040 Latex allergy status; Z88.0 Allergy status to penicillin; Z88.8 Allergy status to other drugs, medicaments and biological substances; Z79.899 Other long term (current) drug therapy; Y84.6 Urinary catheterization as the cause of abnormal reaction of the patient, or of later complication, without mention of misadventure at the time of the procedure

== ENCOUNTER → 2024-12-27 | Outpatient (REF) | payer BC ==
[~2024-12-27] MED LIST changes: +ACET-683 PO; +LINE1TAB6 PO; +ONDA-83 PO; +OXYB5TAB14 PO; +PHEN-501 PO
[2024-12-27 17:50] LABS: AMORPHOUS SEDIMENT SMALL (NEGATIVE); APPEARANCE, URINE TURBID (CLEAR); BACTERIA, URINE AUTO NEGATIVE (NEGATIVE); BILIRUBIN, URINE AUTO NEGATIVE (NEGATIVE); BLOOD, URINE BLOOD NEGATIVE (NEGATIVE); GLUCOSE, URINE (UA) AUTO NEGATIVE (NEGATIVE); KETONE, URINE AUTO NEGATIVE (NEGATIVE); LEUKOCYTE ESTERASE, URINE AUTO NEGATIVE (NEGATIVE); NITRITE, URINE AUTO NEGATIVE (NEGATIVE); PROTEIN, URINE AUTO NEGATIVE (NEGATIVE); RBC, URINE AUTO 5 /HPF (0-3); SPECIFIC GRAVITY URINE AUTO 1.017 (1.002-1.035); SQUAMOUS EPITHELIAL CELL UR AU 7 /HPF (0-6); UROBILINOGEN, URINE AUTO 0.2 mg/dL (0.0-2.0); WBC, URINE AUTO 0 /HPF (0-3)
== END ==
LOC: M SMT 16:43
PROVIDERS: ATTEND Urology
DX: Z87.440 Personal history of urinary (tract) infections (principal)

== ENCOUNTER → 2025-01-24 | Outpatient (CLI) | payer BC ==
[~2025-01-24] MED LIST changes: -IBUP-1022 PO; +IBUP600T42 PO
== END ==
LOC: M RAD 14:38
PROVIDERS: ATTEND Urology
DX: N13.30 Unspecified hydronephrosis (principal)